=== PATIENT | male | born 1950 | race Caucasian/White ===

== ENCOUNTER 2018-07-29 14:09 | Inpatient (IN) ==
[2018-07-29] MEDS ORDERED: ACETAMINOPHEN 325 MG TABLET PO PRN (15:16)
[2018-07-29] MEDS ORDERED: ONDANSETRON 4 MG/2 ML VIAL IV PRN (15:24)
[2018-07-29 16:35] LABS: Basophils % 0.1 % (0.0-0.8); Eosinophils % 0.2 % (0.00-10.9); Hematocrit 48.8 VOL% (42.0-52.0); Hemoglobin 15.4 GM/DL (14.0-18.0); Lymphocytes # 0.4 10*3/uL (1.4-4.0); Lymphocytes % 4.2 % (21.2-54.2); Mean Corpuscular HGB Conc 31.6 GM/DL (32-36); Mean Corpuscular Hemoglobin 29 PG (27-34); Mean Corpuscular Volume 90.5 FL (87-102); Mean Platelet Volume 10.7 FL (9.6-12.0); Monocytes # 0.7 10*3/uL (0.11-0.8); Monocytes % 6.8 % (1.7-12.7); Neutrophils # 8.8 10*3/uL (1.4-7.4); Neutrophils % 86.7 % (38.7-73.9); Platelet Count 103 T/CUMM (130-400); Red Blood Count 5.39 MC/CUMM (3.8-5.5); Red Cell Distribution Width 13.8 % (9.3-17.3); White Blood Count 10.1 T/CUMM (4-12)
[2018-07-29] MEDS ORDERED: GLUCAGON 1 MG VIAL IM PRN (16:39)
[2018-07-29] MEDS ORDERED: DEXTROSE 50% 25 GM/50 ML SYRINGE IV PRN (16:39)
[2018-07-29] MEDS: LEVOFLOXACIN INJ 750 MG in PREMIX 1 EACH IV SCH (16:41)
[2018-07-29 16:55] LABS: Albumin 2.6 G/DL (3.4-5.0); Calcium 8.7 MG/DL (8.5-10.1); Osmolality,Calculated 288.7 MOS/KG (273-304); Platelet Estimate Normal; Potassium 5.3 MMOL/L (3.5-5.1); Total Protein 7.1 G/DL (6.4-8.3)
[2018-07-29 16:56] LABS: Hypochromasia Slight
[2018-07-29 16:57] LABS: Band Neutrophils 1 % (0-10); Lymphocytes 5 % (20-55); Segmented Neutrophils 89 % (50-85); Total Cells Counted 100
[2018-07-29 17:46] LABS: Apearance,Urine Slightly Hazy (Clear); Bilirubin,Urine Negative (Negative); Blood, Urine Moderate mg/dL (Negative); Glucose,Urine (UA) Negative (Negative); Ketones,Urine Negative (Negative); Mucus,Urine Occasional /LPF (Occasional); Nitrite,Urine Negative (Negative); Protein,Urine 100 MG/DL; RBC,Urine 13 /HPF (0-4); Urine Color Yellow (Yellow); Urine Specific Gravity 1.016 (1.001-1.035); Urine Urobilinogen < 2.0 EU/DL (0.2-1.0); WBC,Urine 1 /HPF (0-6)
[2018-07-29] MEDS: INSULIN REGULAR 100 UNIT/ML SUBCUT SCH (21:03)
[2018-07-30 04:42] LABS: Eosinophils % 0.4 % (0.00-10.9); Hematocrit 43.1 VOL% (42.0-52.0); Hemoglobin 13.9 GM/DL (14.0-18.0); Immature Granulocytes % 1.4 %; Lymphocytes # 0.6 10*3/uL (1.4-4.0); Lymphocytes % 8.5 % (21.2-54.2); Mean Corpuscular HGB Conc 32.3 GM/DL (32-36); Mean Corpuscular Hemoglobin 29 PG (27-34); Mean Corpuscular Volume 89.6 FL (87-102); Mean Platelet Volume 10.8 FL (9.6-12.0); Monocytes # 0.7 10*3/uL (0.11-0.8); Monocytes % 9.8 % (1.7-12.7); Neutrophils # 5.6 10*3/uL (1.4-7.4); Neutrophils % 79.9 % (38.7-73.9); Red Blood Count 4.81 MC/CUMM (3.8-5.5); Red Cell Distribution Width 13.4 % (9.3-17.3)
[2018-07-30 04:48] LABS: Platelet Count 86 T/CUMM (130-400)
[2018-07-30 05:13] LABS: Calcium 8.2 MG/DL (8.5-10.1); Osmolality,Calculated 283.7 MOS/KG (273-304); Potassium 4.9 MMOL/L (3.5-5.1)
[2018-07-30] MEDS ORDERED: COLCHICINE 0.6 MG CAPSULE PO PRN (07:17)
[2018-07-30] MEDS ORDERED: CLOBETASOL 0.05% CREAM 15 GM TUBE TOP PRN (07:17)
[2018-07-30] MEDS ORDERED: PANTOPRAZOLE 40 MG TABLET PO SCH (09:00)
[2018-07-30] MEDS ORDERED: APREMILAST 30 MG PO SCH (09:00)
[2018-07-30] MEDS: METOPROLOL TARTRATE 50 MG TABLET PO SCH ×2 (09:54→22:33)
[2018-07-30] MEDS: ASPIRIN EC 81 MG TABLET PO SCH (09:54)
[2018-07-30] MEDS: INSULIN REGULAR 100 UNIT/ML SUBCUT SCH ×4 (09:54→22:34)
[2018-07-30] MEDS: TACROLIMUS 0.5 MG CAPSULE PO SCH (09:54)
[2018-07-30] MEDS: MULTIVITAMIN (CENTRUM) TABLET PO SCH (09:54)
[2018-07-30] MEDS: PANTOPRAZOLE 40 MG TABLET PO SCH (09:54)
[2018-07-30] MEDS: MYCOPHENOLATE MOFETIL 250 MG CAPSULE PO SCH ×2 (09:54→22:33)
[2018-07-30] MEDS: glipiZIDE 5 MG TABLET PO SCH (09:54)
[2018-07-30] MEDS: ALBUTEROL/IPRATROPIUM 3 ML NEB RESP TX PRN ×2 (10:37→16:24)
[2018-07-30] MEDS: LEVOFLOXACIN INJ 750 MG in PREMIX 1 EACH IV SCH (15:11)
[2018-07-30] MEDS: CALCIUM (CARBONATE)/VITAMIN D 600 MG-400 UNIT TABLET PO SCH (22:33)
[2018-07-30] MEDS: ALLOPURINOL 300 MG TABLET PO SCH (22:34)
[2018-07-31 05:22] LABS: Eosinophils % 0.4 % (0.00-10.9); Hematocrit 39.5 VOL% (42.0-52.0); Hemoglobin 12.5 GM/DL (14.0-18.0); Immature Granulocytes % 1.7 %; Immature Granulocytes Absolute 0.08 #; Lymphocytes # 0.4 10*3/uL (1.4-4.0); Lymphocytes % 8.1 % (21.2-54.2); Mean Corpuscular HGB Conc 31.6 GM/DL (32-36); Mean Corpuscular Hemoglobin 29 PG (27-34); Mean Corpuscular Volume 90.8 FL (87-102); Monocytes # 0.4 10*3/uL (0.11-0.8); Monocytes % 8.3 % (1.7-12.7); Neutrophils # 3.8 10*3/uL (1.4-7.4); Neutrophils % 81.5 % (38.7-73.9); Red Blood Count 4.35 MC/CUMM (3.8-5.5); Red Cell Distribution Width 13.2 % (9.3-17.3); White Blood Count 4.7 T/CUMM (4-12)
[2018-07-31 05:30] LABS: Platelet Count 80 T/CUMM (130-400)
[2018-07-31 05:38] LABS: Calcium 7.8 MG/DL (8.5-10.1); Osmolality,Calculated 285.5 MOS/KG (273-304); Potassium 4.9 MMOL/L (3.5-5.1)
[2018-07-31 06:19] LABS: Platelet Estimate Decreased
[2018-07-31] MEDS ORDERED: PHENOL 1.4% THROAT SPRAY 177 ML BOTTLE PO PRN (09:24)
[2018-07-31] MEDS: INSULIN REGULAR 100 UNIT/ML SUBCUT SCH ×4 (09:24→21:37)
[2018-07-31] MEDS: METOPROLOL TARTRATE 50 MG TABLET PO SCH ×2 (09:25→21:37)
[2018-07-31] MEDS: PANTOPRAZOLE 40 MG TABLET PO SCH (09:25)
[2018-07-31] MEDS: ASPIRIN EC 81 MG TABLET PO SCH (09:25)
[2018-07-31] MEDS: MULTIVITAMIN (CENTRUM) TABLET PO SCH (09:25)
[2018-07-31] MEDS: MYCOPHENOLATE MOFETIL 250 MG CAPSULE PO SCH ×2 (09:25→21:37)
[2018-07-31] MEDS: glipiZIDE 5 MG TABLET PO SCH (09:25)
[2018-07-31] MEDS: TACROLIMUS 0.5 MG CAPSULE PO SCH (09:26)
[2018-07-31] MEDS: LEVOFLOXACIN INJ 750 MG in PREMIX 1 EACH IV SCH (16:17)
[2018-07-31] MEDS: ALBUTEROL/IPRATROPIUM 3 ML NEB RESP TX PRN (19:25)
[2018-07-31] MEDS: ALLOPURINOL 300 MG TABLET PO SCH (21:37)
[2018-07-31] MEDS: CALCIUM (CARBONATE)/VITAMIN D 600 MG-400 UNIT TABLET PO SCH (21:38)
[2018-08-01 05:18] LABS: Eosinophils % 0.8 % (0.00-10.9); Hematocrit 38.1 VOL% (42.0-52.0); Hemoglobin 12.3 GM/DL (14.0-18.0); Immature Granulocytes % 1.6 %; Immature Granulocytes Absolute 0.06 #; Lymphocytes # 0.4 10*3/uL (1.4-4.0); Lymphocytes % 10.7 % (21.2-54.2); Mean Corpuscular HGB Conc 32.3 GM/DL (32-36); Mean Corpuscular Hemoglobin 29 PG (27-34); Mean Corpuscular Volume 90.5 FL (87-102); Monocytes # 0.4 10*3/uL (0.11-0.8); Monocytes % 9.4 % (1.7-12.7); Neutrophils % 77.5 % (38.7-73.9); Red Blood Count 4.21 MC/CUMM (3.8-5.5); Red Cell Distribution Width 13.2 % (9.3-17.3); White Blood Count 3.8 T/CUMM (4-12)
[2018-08-01 05:19] LABS: Platelet Count 91 T/CUMM (130-400)
[2018-08-01 05:48] LABS: Calcium 7.7 MG/DL (8.5-10.1); Osmolality,Calculated 286.4 MOS/KG (273-304); Potassium 5.8 MMOL/L (3.5-5.1)
[2018-08-01] MEDS: INSULIN REGULAR 100 UNIT/ML SUBCUT SCH ×4 (08:02→21:24)
[2018-08-01] MEDS: glipiZIDE 5 MG TABLET PO SCH (08:02)
[2018-08-01] MEDS: ASPIRIN EC 81 MG TABLET PO SCH (09:05)
[2018-08-01] MEDS: MULTIVITAMIN (CENTRUM) TABLET PO SCH (09:05)
[2018-08-01] MEDS: TACROLIMUS 0.5 MG CAPSULE PO SCH (09:05)
[2018-08-01] MEDS: METOPROLOL TARTRATE 50 MG TABLET PO SCH ×2 (09:05→21:25)
[2018-08-01] MEDS: MYCOPHENOLATE MOFETIL 250 MG CAPSULE PO SCH ×2 (09:05→21:25)
[2018-08-01] MEDS: PANTOPRAZOLE 40 MG TABLET PO SCH (10:16)
[2018-08-01] MEDS: LEVOFLOXACIN INJ 750 MG in PREMIX 1 EACH IV SCH (16:34)
[2018-08-01] MEDS: ALLOPURINOL 300 MG TABLET PO SCH (21:25)
[2018-08-01] MEDS: CALCIUM (CARBONATE)/VITAMIN D 600 MG-400 UNIT TABLET PO SCH (21:25)
[2018-08-02] MEDS: INSULIN REGULAR 100 UNIT/ML SUBCUT SCH ×4 (08:29→21:05)
[2018-08-02] MEDS: ASPIRIN EC 81 MG TABLET PO SCH (08:30)
[2018-08-02] MEDS: TACROLIMUS 0.5 MG CAPSULE PO SCH (08:30)
[2018-08-02] MEDS: MYCOPHENOLATE MOFETIL 250 MG CAPSULE PO SCH ×2 (08:30→21:05)
[2018-08-02] MEDS: METOPROLOL TARTRATE 50 MG TABLET PO SCH ×2 (08:30→21:05)
[2018-08-02] MEDS: glipiZIDE 5 MG TABLET PO SCH (08:31)
[2018-08-02] MEDS: MULTIVITAMIN (CENTRUM) TABLET PO SCH (08:31)
[2018-08-02] MEDS: PANTOPRAZOLE 40 MG TABLET PO SCH (08:31)
[2018-08-02] MEDS ORDERED: SODIUM POLYSTYRENE SULFATE 15 GM/60 ML BOTTLE PO STA (14:17)
[2018-08-02] MEDS: LEVOFLOXACIN INJ 750 MG in PREMIX 1 EACH IV SCH (14:43)
[2018-08-02] MEDS: ALLOPURINOL 300 MG TABLET PO SCH (21:05)
[2018-08-02] MEDS: CALCIUM (CARBONATE)/VITAMIN D 600 MG-400 UNIT TABLET PO SCH (21:05)
[2018-08-03 04:21] LABS: Basophils % 0.3 % (0.0-0.8); Eosinophils % 0.9 % (0.00-10.9); Hematocrit 37.6 VOL% (42.0-52.0); Immature Granulocytes % 1.5 %; Immature Granulocytes Absolute 0.05 #; Lymphocytes # 0.6 10*3/uL (1.4-4.0); Lymphocytes % 16.8 % (21.2-54.2); Mean Corpuscular HGB Conc 31.9 GM/DL (32-36); Mean Corpuscular Hemoglobin 29 PG (27-34); Mean Corpuscular Volume 90.4 FL (87-102); Mean Platelet Volume 9.3 FL (9.6-12.0); Monocytes # 0.3 10*3/uL (0.11-0.8); Monocytes % 9.6 % (1.7-12.7); Neutrophils # 2.4 10*3/uL (1.4-7.4); Neutrophils % 70.9 % (38.7-73.9); Red Blood Count 4.16 MC/CUMM (3.8-5.5); Red Cell Distribution Width 13.2 % (9.3-17.3); White Blood Count 3.3 T/CUMM (4-12)
[2018-08-03 04:22] LABS: Platelet Count 93 T/CUMM (130-400)
[2018-08-03 04:45] LABS: Platelet Estimate Decreased; Polychromasia Few
[2018-08-03 05:01] LABS: Calcium 7.4 MG/DL (8.5-10.1); Osmolality,Calculated 282.2 MOS/KG (273-304); Potassium 4.8 MMOL/L (3.5-5.1)
[2018-08-03] MEDS: INSULIN REGULAR 100 UNIT/ML SUBCUT SCH ×2 (08:15→12:28)
[2018-08-03] MEDS: glipiZIDE 5 MG TABLET PO SCH (08:15)
[2018-08-03] MEDS: MYCOPHENOLATE MOFETIL 250 MG CAPSULE PO SCH (10:24)
[2018-08-03] MEDS: PANTOPRAZOLE 40 MG TABLET PO SCH (10:25)
[2018-08-03] MEDS: ASPIRIN EC 81 MG TABLET PO SCH (10:25)
[2018-08-03] MEDS: MULTIVITAMIN (CENTRUM) TABLET PO SCH (10:25)
[2018-08-03] MEDS: TACROLIMUS 0.5 MG CAPSULE PO SCH (10:25)
[2018-08-03] MEDS: METOPROLOL TARTRATE 50 MG TABLET PO SCH (10:25)
[2018-08-03 11:56] VITALS: BP 122/67
[2018-08-03] MEDS ORDERED: LEVOFLOXACIN 750 MG TABLET PO SCH (15:00)
== END 2018-08-03 15:47 | disposition home or self-care (01) | DRG 194 ==
LOC: SUATTDRO 14:32 → N.3E 14:32
PROVIDERS: ADMIT Internal Medicine; ATTEND Internal Medicine

== ENCOUNTER 2021-04-24 18:52 | Inpatient (IN) ==
[2021-04-24] MEDS ORDERED: FUROSEMIDE 40 MG/4 ML VIAL IV STA (19:11)
[2021-04-24] MEDS ORDERED: NITROGLYCERIN SL 0.4 MG TABLET SL STA (19:11)
[2021-04-24 19:26] LABS: Basophils % 0.3 % (0.0-0.8); Eosinophils # 0.1 10*3/uL (0.0-0.87); Eosinophils % 1.5 % (0.00-10.9); Hematocrit 38.6 VOL% (42.0-52.0); Hemoglobin 11.1 GM/DL (14.0-18.0); Immature Granulocytes % 0.5 %; Immature Granulocytes Absolute 0.02 #; Lymphocytes % 25.8 % (21.2-54.2); Mean Corpuscular HGB Conc 28.8 GM/DL (32-36); Mean Corpuscular Volume 86.7 FL (87-102); Mean Platelet Volume 8.9 FL (9.6-12.0); Monocytes % 6.6 % (1.7-12.7); Neutrophils % 65.3 % (38.7-73.9); Platelet Count 87 T/CUMM (130-400); Red Blood Count 4.45 MC/CUMM (3.8-5.5); White Blood Count 3.9 T/CUMM (4-12)
[2021-04-24] MEDS: NITROGLYCERIN DRIP 50 MG/250 ML BOTTLE IV SCH (19:58)
[2021-04-24 20:08] LABS: Albumin 3.6 G/DL (3.4-5.0); Bilirubin,Direct 0.28 MG/DL (0.0-0.20); Bilirubin,Indirect 0.4 MG/DL (0.0-1.0); Bilirubin,Total 0.7 MG/DL (0.20-1.00); Calcium 7.8 MG/DL (8.5-10.1); Osmolality,Calculated 295.1 MOS/KG (273-304); Potassium 4.3 MMOL/L (3.5-5.1); Total Protein 6.6 G/DL (6.4-8.2)
[2021-04-24] MEDS ORDERED: ACETAMINOPHEN 325 MG TABLET PO PRN ×2 (20:37→23:16)
[2021-04-24] MEDS ORDERED: ONDANSETRON 4 MG/2 ML VIAL IV PRN ×2 (20:37→23:16)
[2021-04-24] MEDS ORDERED: SODIUM CHLORIDE 0.9% 1,000 ML IV SCH (21:00)
[2021-04-24] MEDS ORDERED: DOCUSATE SODIUM 100 MG CAPSULE PO SCH (21:00)
[2021-04-24] MEDS ORDERED: hydrALAZINE 20 MG/1 ML VIAL IV STA (21:55)
[2021-04-24 22:05] LABS: ABG Base Excess -3.6 MMOL/L (-2.5-2.5); ABG HCO3 21.4 MMOL/L (20-26); ABG Oxygen Saturation 99.6 % (95-100); ABG PCO2 34.1 MM HG (35-48); ABG PH 7.391 (7.35-7.45); ABG TCO2 18.7 MMOL/L (23-27)
[2021-04-24] MEDS ORDERED: DEXTROSE 50% 25 GM/50 ML VIAL IV PRN ×2 (23:14→23:16)
[2021-04-24] MEDS ORDERED: hydrALAZINE 20 MG/1 ML VIAL IV PRN (23:16)
[2021-04-24] MEDS ORDERED: HEPARIN 5,000 UNIT/1 ML VIAL SUBCUT SCH (23:30)
[2021-04-25] MEDS ORDERED: NITROGLYCERIN SL 0.4 MG TABLET SL PRN (00:23)
[2021-04-25] MEDS ORDERED: FUROSEMIDE 40 MG/4 ML VIAL IV ONE (00:25)
[2021-04-25] MEDS: ALBUTEROL/IPRATROPIUM 3 ML NEB RESP TX SCH ×3 (03:32→13:05)
[2021-04-25 06:24] LABS: Basophils % 0.3 % (0.0-0.8); Eosinophils # 0.1 10*3/uL (0.0-0.87); Eosinophils % 1.4 % (0.00-10.9); Hematocrit 33.3 VOL% (42.0-52.0); Hemoglobin 9.9 GM/DL (14.0-18.0); Immature Granulocytes % 0.8 %; Immature Granulocytes Absolute 0.03 #; Lymphocytes # 0.4 10*3/uL (1.4-4.0); Lymphocytes % 11.1 % (21.2-54.2); Mean Corpuscular HGB Conc 29.7 GM/DL (32-36); Mean Corpuscular Volume 84.5 FL (87-102); Mean Platelet Volume 11.1 FL (9.6-12.0); Monocytes % 8.9 % (1.7-12.7); Neutrophils % 77.5 % (38.7-73.9); Platelet Count 63 T/CUMM (130-400); Red Blood Count 3.94 MC/CUMM (3.8-5.5); Red Cell Distribution Width 14.8 % (9.3-17.3); White Blood Count 3.6 T/CUMM (4-12)
[2021-04-25 06:45] LABS: Hypochromasia 1+; Microcytosis 1+; Ovalocytes Slight; Platelet Estimate Decreased
[2021-04-25 06:53] LABS: Albumin 3.1 G/DL (3.4-5.0); Calcium 7.6 MG/DL (8.5-10.1); Osmolality,Calculated 292.8 MOS/KG (273-304); Potassium 4.2 MMOL/L (3.5-5.1); Total Protein 5.4 G/DL (6.4-8.2)
[2021-04-25] MEDS ORDERED: diphenhydrAMINE CAP 50 MG CAPSULE PO ONE (07:23)
[2021-04-25] MEDS ORDERED: DIAZEPAM 5 MG TABLET PO ONE (07:23)
[2021-04-25] MEDS ORDERED: glipiZIDE 5 MG TABLET PO SCH (07:30)
[2021-04-25] MEDS: INSULIN LISPRO 100 UNIT/ML SUBCUT SCH ×4 (08:09→20:33)
[2021-04-25] MEDS ORDERED: LIDOCAINE 1% 20 ML VIAL ONE (08:13)
[2021-04-25] MEDS: METOPROLOL TARTRATE 50 MG TABLET PO SCH ×2 (08:17→20:32)
[2021-04-25] MEDS: ASPIRIN EC 81 MG TABLET PO SCH (08:17)
[2021-04-25] MEDS ORDERED: fentaNYL 100 MCG/2 ML VIAL ONE (08:54)
[2021-04-25] MEDS ORDERED: MIDAZOLAM 2 MG/2 ML VIAL ONE (08:54)
[2021-04-25] MEDS ORDERED: ISOSORBIDE MONONITRATE 30 MG TABLET PO SCH (09:00)
[2021-04-25] MEDS ORDERED: PANTOPRAZOLE 40 MG TABLET PO SCH ×2 (09:00)
[2021-04-25] MEDS ORDERED: APREMILAST 30 MG PO SCH (09:00)
[2021-04-25] MEDS: SODIUM CHLORIDE 0.9% 1,000 ML IV SCH (10:15)
[2021-04-25] MEDS: FUROSEMIDE 40 MG/4 ML VIAL IV SCH ×2 (10:59→20:33)
[2021-04-25] MEDS ORDERED: amLODIPine 5 MG TABLET PO SCH (11:00)
[2021-04-25] MEDS: TACROLIMUS 0.5 MG CAPSULE PO SCH (11:00)
[2021-04-25] MEDS: MYCOPHENOLATE MOFETIL 250 MG CAPSULE PO SCH ×2 (11:00→20:32)
[2021-04-25] MEDS: hydrALAZINE 25 MG TABLET PO SCH ×2 (11:01→20:32)
[2021-04-25] MEDS: allopurinoL 300 MG TABLET PO SCH (20:32)
[2021-04-25] MEDS: SIMVASTATIN 20 MG TABLET PO SCH (20:32)
[2021-04-25] MEDS: CALCIUM (CARBONATE)/VITAMIN D 600 MG-400 UNIT TABLET PO SCH (20:32)
[2021-04-25] MEDS: NITROGLYCERIN DRIP 50 MG/250 ML BOTTLE IV SCH (21:19)
[2021-04-26] MEDS: ALBUTEROL/IPRATROPIUM 3 ML NEB RESP TX SCH ×4 (00:53→19:00)
[2021-04-26] MEDS: SODIUM CHLORIDE 0.9% 1,000 ML IV SCH (06:11)
[2021-04-26 07:04] LABS: Basophils % 0.3 % (0.0-0.8); Eosinophils # 0.1 10*3/uL (0.0-0.87); Eosinophils % 2.2 % (0.00-10.9); Hematocrit 32.8 VOL% (42.0-52.0); Hemoglobin 9.7 GM/DL (14.0-18.0); Immature Granulocytes % 0.3 %; Immature Granulocytes Absolute 0.01 #; Lymphocytes # 0.5 10*3/uL (1.4-4.0); Lymphocytes % 15.2 % (21.2-54.2); Mean Corpuscular HGB Conc 29.6 GM/DL (32-36); Mean Corpuscular Volume 84.1 FL (87-102); Mean Platelet Volume 11.7 FL (9.6-12.0); Monocytes % 9.5 % (1.7-12.7); Neutrophils % 72.5 % (38.7-73.9); Red Cell Distribution Width 15.1 % (9.3-17.3); White Blood Count 3.2 T/CUMM (4-12)
[2021-04-26 07:06] LABS: Platelet Count 78 T/CUMM (130-400)
[2021-04-26 07:17] LABS: Calcium 8.1 MG/DL (8.5-10.1); Potassium 4.3 MMOL/L (3.5-5.1)
[2021-04-26 07:34] LABS: Anisocytosis 2+; Platelet Estimate Decreased
[2021-04-26 07:35] LABS: Ovalocytes 1+
[2021-04-26] MEDS: INSULIN LISPRO 100 UNIT/ML SUBCUT SCH ×4 (08:05→20:09)
[2021-04-26] MEDS: hydrALAZINE 25 MG TABLET PO SCH ×2 (09:56→20:08)
[2021-04-26] MEDS: MYCOPHENOLATE MOFETIL 250 MG CAPSULE PO SCH ×2 (09:56→20:08)
[2021-04-26] MEDS: METOPROLOL TARTRATE 50 MG TABLET PO SCH ×2 (09:56→20:08)
[2021-04-26] MEDS: ISOSORBIDE MONONITRATE 60 MG TABLET PO SCH (09:56)
[2021-04-26] MEDS: TACROLIMUS 0.5 MG CAPSULE PO SCH (09:56)
[2021-04-26] MEDS: FUROSEMIDE 40 MG/4 ML VIAL IV SCH ×2 (09:57→20:09)
[2021-04-26] MEDS: amLODIPine 5 MG TABLET PO SCH (09:57)
[2021-04-26] MEDS: ASPIRIN EC 81 MG TABLET PO SCH (09:57)
[2021-04-26] MEDS: allopurinoL 300 MG TABLET PO SCH (20:08)
[2021-04-26] MEDS: CALCIUM (CARBONATE)/VITAMIN D 600 MG-400 UNIT TABLET PO SCH (20:08)
[2021-04-26] MEDS: SIMVASTATIN 20 MG TABLET PO SCH (20:08)
[2021-04-26] MEDS: CHLORHEXIDINE 0.12% ORAL RINSE 60 ML BOTTLE SWISH/SPIT SCH (21:39)
[2021-04-27] MEDS: ALBUTEROL/IPRATROPIUM 3 ML NEB RESP TX SCH ×4 (00:12→19:44)
[2021-04-27 05:11] LABS: Basophils % 0.4 % (0.0-0.8); Eosinophils # 0.1 10*3/uL (0.0-0.87); Eosinophils % 3.3 % (0.00-10.9); Hematocrit 31.1 VOL% (42.0-52.0); Hemoglobin 9.2 GM/DL (14.0-18.0); Immature Granulocytes % 0.4 %; Immature Granulocytes Absolute 0.01 #; Lymphocytes # 0.5 10*3/uL (1.4-4.0); Lymphocytes % 19.9 % (21.2-54.2); Mean Corpuscular HGB Conc 29.6 GM/DL (32-36); Mean Corpuscular Volume 84.1 FL (87-102); Mean Platelet Volume 9.2 FL (9.6-12.0); Monocytes % 10.2 % (1.7-12.7); Neutrophils % 65.8 % (38.7-73.9); Platelet Count 69 T/CUMM (130-400); Red Cell Distribution Width 14.8 % (9.3-17.3); White Blood Count 2.5 T/CUMM (4-12)
[2021-04-27 05:54] LABS: % Iron Saturation 8.1 % (18-50); Calcium 7.9 MG/DL (8.5-10.1); Ferritin 25.3 ng/mL (26-388); Osmolality,Calculated 293.1 MOS/KG (273-304)
[2021-04-27] MEDS: INSULIN LISPRO 100 UNIT/ML SUBCUT SCH ×4 (08:42→20:18)
[2021-04-27] MEDS: ASPIRIN EC 81 MG TABLET PO SCH (10:19)
[2021-04-27] MEDS: TACROLIMUS 0.5 MG CAPSULE PO SCH (10:19)
[2021-04-27] MEDS: ISOSORBIDE MONONITRATE 60 MG TABLET PO SCH (10:19)
[2021-04-27] MEDS: amLODIPine 5 MG TABLET PO SCH (10:20)
[2021-04-27] MEDS: MYCOPHENOLATE MOFETIL 250 MG CAPSULE PO SCH ×2 (10:20→20:17)
[2021-04-27] MEDS: hydrALAZINE 25 MG TABLET PO SCH ×2 (10:20→20:17)
[2021-04-27] MEDS: METOPROLOL TARTRATE 50 MG TABLET PO SCH ×2 (10:20→20:17)
[2021-04-27] MEDS: CHLORHEXIDINE 0.12% ORAL RINSE 60 ML BOTTLE SWISH/SPIT SCH ×2 (10:21→20:18)
[2021-04-27] MEDS ORDERED: MAGNESIUM SULF RIDER 2 GM/50 ML PREMIX IV ONE (10:26)
[2021-04-27] MEDS: FUROSEMIDE 40 MG/4 ML VIAL IV SCH ×2 (11:23→20:17)
[2021-04-27] MEDS ORDERED: DOCUSATE SODIUM 100 MG CAPSULE PO PRN (11:42)
[2021-04-27] MEDS: FERROUS GLUCONATE 324 MG TABLET PO SCH (20:17)
[2021-04-27] MEDS: SIMVASTATIN 20 MG TABLET PO SCH (20:17)
[2021-04-27] MEDS: CALCIUM (CARBONATE)/VITAMIN D 600 MG-400 UNIT TABLET PO SCH (20:17)
[2021-04-27] MEDS: allopurinoL 300 MG TABLET PO SCH (20:17)
[2021-04-28] MEDS: ALBUTEROL/IPRATROPIUM 3 ML NEB RESP TX SCH ×4 (00:57→20:38)
[2021-04-28 04:34] LABS: ABG Base Excess 3.2 MMOL/L (-2.5-2.5); ABG HCO3 27.2 MMOL/L (20-26); ABG Oxygen Saturation 91.8 % (95-100); ABG PCO2 43.4 MM HG (35-48); ABG PH 7.419 (7.35-7.45); ABG PO2 64.1 MM HG (80-95); ABG TCO2 25.7 MMOL/L (23-27)
[2021-04-28 04:35] LABS: Allen Test Positive; Pt O2 Delivery Device Room Air
[2021-04-28 05:08] LABS: Basophils % 0.3 % (0.0-0.8); Eosinophils # 0.1 10*3/uL (0.0-0.87); Eosinophils % 3.1 % (0.00-10.9); Hematocrit 31.7 VOL% (42.0-52.0); Hemoglobin 9.5 GM/DL (14.0-18.0); Immature Granulocytes % 0.7 %; Immature Granulocytes Absolute 0.02 #; Lymphocytes # 0.6 10*3/uL (1.4-4.0); Lymphocytes % 20.2 % (21.2-54.2); Mean Platelet Volume 9.8 FL (9.6-12.0); Monocytes % 7.2 % (1.7-12.7); Neutrophils % 68.5 % (38.7-73.9); Platelet Count 73 T/CUMM (130-400); Red Blood Count 3.82 MC/CUMM (3.8-5.5); Red Cell Distribution Width 14.8 % (9.3-17.3); White Blood Count 2.9 T/CUMM (4-12)
[2021-04-28 05:21] LABS: Calcium 8.7 MG/DL (8.5-10.1); Potassium 3.7 MMOL/L (3.5-5.1)
[2021-04-28 05:27] LABS: Alanine Aminotransferase 15 U/L (16-61); Alkaline Phosphatase 74 U/L (45-117); Aspartate Amino Transferase 10 U/L (0-37); Blood Urea Nitrogen 45 MG/DL (7-18); Calcium 8.9 MG/DL (8.5-10.1); Carbon Dioxide 29 MMOL/L (21-32); Estimated Glom Filtration Rate 38 ML/MIN; Glucose 131 MG/DL (74-106); Osmolality,Calculated 294.3 MOS/KG (273-304); Potassium 3.7 MMOL/L (3.5-5.1); Sodium 141 MMOL/L (136-145); Total Protein 5.5 G/DL (6.4-8.2)
[2021-04-28 05:46] LABS: Hypochromasia 1+; Microcytosis 1+; Ovalocytes Slight
[2021-04-28 05:47] LABS: Platelet Estimate Decreased
[2021-04-28] MEDS ORDERED: MAGNESIUM SULF RIDER 4 GM/100 ML PREMIX IV ONE (07:32)
[2021-04-28] MEDS: INSULIN LISPRO 100 UNIT/ML SUBCUT SCH ×4 (08:30→21:11)
[2021-04-28] MEDS: ASCORBIC ACID 500 MG TABLET PO SCH ×2 (09:27→21:10)
[2021-04-28] MEDS: TACROLIMUS 0.5 MG CAPSULE PO SCH (09:39)
[2021-04-28] MEDS: ASPIRIN EC 81 MG TABLET PO SCH (09:40)
[2021-04-28] MEDS: hydrALAZINE 25 MG TABLET PO SCH ×2 (09:40→21:10)
[2021-04-28] MEDS: amLODIPine 5 MG TABLET PO SCH (09:40)
[2021-04-28] MEDS: METOPROLOL TARTRATE 50 MG TABLET PO SCH ×2 (09:40→21:10)
[2021-04-28] MEDS: ISOSORBIDE MONONITRATE 60 MG TABLET PO SCH (09:40)
[2021-04-28] MEDS: MYCOPHENOLATE MOFETIL 250 MG CAPSULE PO SCH ×2 (09:40→21:10)
[2021-04-28] MEDS: FERROUS GLUCONATE 324 MG TABLET PO SCH ×2 (09:41→21:10)
[2021-04-28] MEDS: CHLORHEXIDINE 0.12% ORAL RINSE 60 ML BOTTLE SWISH/SPIT SCH ×2 (09:41→21:12)
[2021-04-28] MEDS: FUROSEMIDE 40 MG/4 ML VIAL IV SCH ×2 (10:32→21:31)
[2021-04-28] MEDS: CHLORHEXIDINE 4% SOLN 118 ML BOTTLE TOP SCH ×2 (13:01→21:10)
[2021-04-28] MEDS ORDERED: SODIUM CHLORIDE 0.9% 1,000 ML IV SCH (21:00)
[2021-04-28] MEDS: allopurinoL 300 MG TABLET PO SCH (21:10)
[2021-04-28] MEDS: SIMVASTATIN 20 MG TABLET PO SCH (21:10)
[2021-04-28] MEDS: CALCIUM (CARBONATE)/VITAMIN D 600 MG-400 UNIT TABLET PO SCH (21:10)
[2021-04-29] MEDS: ALBUTEROL/IPRATROPIUM 3 ML NEB RESP TX SCH ×2 (00:01→09:19)
[2021-04-29] MEDS ORDERED: PAPAVERINE 60 MG/2 ML VIAL ONE (04:24)
[2021-04-29] MEDS ORDERED: VANCOMYCIN 1,000 MG VIAL ONE (04:25)
[2021-04-29] MEDS ORDERED: VANCOMYCIN 500 MG VIAL ONE (04:25)
[2021-04-29] MEDS ORDERED: CEFUROXIME INJ 1,500 MG in SODIUM CHLORIDE 0.9% 100 ML IV ONE (05:00)
[2021-04-29] MEDS: CHLORHEXIDINE 4% SOLN 118 ML BOTTLE TOP SCH (05:07)
[2021-04-29] MEDS ORDERED: SEVOFLURANE 1 UNIT/15 MINUTE INH ONE (05:45)
[2021-04-29] MEDS ORDERED: AMINOCAPROIC ACID 5,000 MG/20 ML VIAL ONE (05:45)
[2021-04-29] MEDS ORDERED: ETOMIDATE 40 MG/20 ML VIAL IV ONE (05:45)
[2021-04-29] MEDS ORDERED: CALCIUM CHLORIDE 1,000 MG/10 ML VIAL IV ONE ×2 (05:45→10:45)
[2021-04-29] MEDS ORDERED: SODIUM CHLORIDE 0.9% 250 ML IV ONE (05:45)
[2021-04-29] MEDS ORDERED: SODIUM CHLORIDE 0.9% 100 ML IV ONE (05:45)
[2021-04-29] MEDS ORDERED: SODIUM CHLORIDE 0.9% 1,000 ML IV ONE (05:45)
[2021-04-29] MEDS ORDERED: LACTATED RINGERS 1,000 ML IV ONE (05:45)
[2021-04-29] MEDS ORDERED: MIDAZOLAM 10 MG/2 ML VIAL ONE ×4 (05:45→05:46)
[2021-04-29] MEDS ORDERED: VECURONIUM 10 MG VIAL IV ONE (05:45)
[2021-04-29] MEDS ORDERED: SUFentanil 250 MCG/5 ML AMP ONE ×3 (05:46)
[2021-04-29] MEDS: METOPROLOL TARTRATE 50 MG TABLET PO SCH ×2 (05:50→11:26)
[2021-04-29 05:55] LABS: Basophils % 0.2 % (0.0-0.8); Eosinophils # 0.2 10*3/uL (0.0-0.87); Eosinophils % 3.4 % (0.00-10.9); Hematocrit 38.2 VOL% (42.0-52.0); Hemoglobin 11.6 GM/DL (14.0-18.0); Immature Granulocytes % 0.2 %; Immature Granulocytes Absolute 0.01 #; Lymphocytes # 0.9 10*3/uL (1.4-4.0); Lymphocytes % 19.7 % (21.2-54.2); Mean Corpuscular HGB Conc 30.4 GM/DL (32-36); Mean Corpuscular Volume 82.3 FL (87-102); Mean Platelet Volume 11.9 FL (9.6-12.0); Monocytes % 8.1 % (1.7-12.7); Neutrophils % 68.4 % (38.7-73.9); Platelet Count 98 T/CUMM (130-400); Red Blood Count 4.64 MC/CUMM (3.8-5.5); White Blood Count 4.4 T/CUMM (4-12)
[2021-04-29] MEDS ORDERED: PHENYLEPHRINE 10 MG/1 ML VIAL IV ONE (06:03)
[2021-04-29 06:13] LABS: Hypochromasia 1+
[2021-04-29 06:14] LABS: Microcytosis 1+; Ovalocytes 1+; Tear Drop Cells Slight
[2021-04-29 06:15] LABS: Calcium 10.1 MG/DL (8.5-10.1); Osmolality,Calculated 294.4 MOS/KG (273-304); Platelet Estimate Decreased; Potassium 3.8 MMOL/L (3.5-5.1)
[2021-04-29] MEDS ORDERED: DIAZEPAM 5 MG TABLET PO ONE (06:45)
[2021-04-29] MEDS ORDERED: FAMOTIDINE 20 MG TABLET PO ONE (06:45)
[2021-04-29] MEDS ORDERED: ALBUMIN 5% 25.0 GM/500 ML VIAL IV ONE (07:21)
[2021-04-29] MEDS ORDERED: PHENYLEPHRINE DRIP 40 MG/250 ML PREMIX IV ONE (07:21)
[2021-04-29] MEDS ORDERED: POTASSIUM CHLORIDE RIDER 20 MEQ/100 ML PREMIX IV ONE (07:21)
[2021-04-29 07:31] LABS: ABG Base Excess 2.6 MMOL/L (-2.5-2.5); ABG HCO3 26.8 MMOL/L (20-26); ABG PCO2 41.7 MM HG (35-48); ABG PH 7.423 (7.35-7.45); ABG TCO2 24.7 MMOL/L (23-27); Glucose Heart Surgery 131 MG/DL (74-106); Hematocrit Heart Surgery 31.2 PERCENT (42-52); Hemoglobin Heart Surgery 10.1 G/DL (14.0-18.0); Ionized Calcium Arterial 1.21 MMOL/L (1.21-1.46); PCO2 Patient Temp Arterial 41.7 MMHG; PH Patient Temp Arterial 7.423; Patient Temperature 37 CELCIUS; Potassium Heart/CVR 3.6 MMOL/L (3.5-5.1); Sodium Heart/CVR 141 MMOL/L (135-145)
[2021-04-29 07:50] LABS: Bilirubin,Urine Negative (Negative); Blood, Urine Negative (Negative); Glucose,Urine (UA) Negative (Negative); Ketones,Urine Negative (Negative); Nitrite,Urine Negative (Negative); Protein,Urine Negative; RBC,Urine 1 /HPF (0-4); Squamous Epithelial Cell,Urine Occasional /HPF (0-10); Urine Appearance CLEAR (Clear); Urine Color Straw (Yellow); Urine Specific Gravity 1.009 (1.001-1.035); Urine Urobilinogen < 2.0 EU/DL (0.2-1.0)
[2021-04-29 08:28] LABS: Hematocrit Heart Surgery 21.5 PERCENT (42-52); Hemoglobin Heart Surgery 6.9 G/DL (14.0-18.0); PCO2 Patient Temp Venous 35.5 MM HG; PH Patient Temp Venous 7.481; PO2 Patient Temp Venous 37.3 MM HG; Potassium Heart/CVR 4.3 MMOL/L (3.5-5.1); VBG Base Excess 3.1 MEQ/L (0-4); VBG Oxygen Saturation 77.2 %; VBG PCO2 39.1 MMHG (41-51); VBG PH 7.451; VBG PO2 42.9 MMHG (17-40); VBG Total CO2 25.8 MMOL/L
[2021-04-29 09:01] LABS: Hematocrit Heart Surgery 24.6 PERCENT (42-52); Hemoglobin Heart Surgery 7.9 G/DL (14.0-18.0); PCO2 Patient Temp Venous 30.7 MM HG; PH Patient Temp Venous 7.521; PO2 Patient Temp Venous 38.9 MM HG; Potassium Heart/CVR 4.5 MMOL/L (3.5-5.1); VBG Base Excess 2.6 MEQ/L (0-4); VBG HCO3 26.6 MEQ/L (24-28); VBG Oxygen Saturation 83.7 %; VBG PCO2 35.5 MMHG (41-51); VBG PH 7.476; VBG PO2 47.8 MMHG (17-40); VBG Total CO2 24.4 MMOL/L
[2021-04-29 09:46] LABS: Hematocrit Heart Surgery 24.8 PERCENT (42-52); PCO2 Patient Temp Venous 28.8 MM HG; PH Patient Temp Venous 7.554; PO2 Patient Temp Venous 36.9 MM HG; Potassium Heart/CVR 4.5 MMOL/L (3.5-5.1); VBG Base Excess 3.4 MEQ/L (0-4); VBG HCO3 27.3 MEQ/L (24-28); VBG Oxygen Saturation 82.1 %; VBG PCO2 33.2 MMHG (41-51); VBG PH 7.508; VBG PO2 45.3 MMHG (17-40); VBG Total CO2 24.7 MMOL/L
[2021-04-29] MEDS ORDERED: PHENYLEPHRINE DRIP 20 MG/250 ML PREMIX IV ONE (10:00)
[2021-04-29] MEDS ORDERED: NITROGLYCERIN DRIP 50 MG/250 ML BOTTLE IV ONE (10:00)
[2021-04-29] MEDS ORDERED: HEPARIN/NACL 0.9% 2 UNITS/ML 1,000 UNIT/500 ML BAG IV ONE (10:00)
[2021-04-29] MEDS ORDERED: MINERAL OIL/PETROLATUM OPH OINT 3.5 GM TUBE ONE (10:00)
[2021-04-29 10:22] LABS: Hematocrit Heart Surgery 23.7 PERCENT (42-52); Hemoglobin Heart Surgery 7.6 G/DL (14.0-18.0); PCO2 Patient Temp Venous 35.5 MM HG; PH Patient Temp Venous 7.461; PO2 Patient Temp Venous 41.6 MM HG; Potassium Heart/CVR 5.1 MMOL/L (3.5-5.1); VBG Base Excess 1.6 MEQ/L (0-4); VBG HCO3 25.6 MEQ/L (24-28); VBG Oxygen Saturation 75.7 %; VBG PCO2 35.5 MMHG (41-51); VBG PH 7.461; VBG PO2 41.6 MMHG (17-40); VBG Total CO2 23.8 MMOL/L
[2021-04-29] MEDS ORDERED: THROMBIN TOPICAL (RECOMBINANT) 5,000 UNIT VIAL TOP ONE (10:36)
[2021-04-29] MEDS ORDERED: MAGNESIUM SULFATE 5 GM/10 ML VIAL IV ONE (11:04)
[2021-04-29] MEDS ORDERED: HEPARIN 10,000 UNIT/10 ML VIAL ONE (11:05)
[2021-04-29] MEDS ORDERED: MANNITOL 12.5 GM/50 ML VIAL IV ONE (11:05)
[2021-04-29] MEDS ORDERED: FUROSEMIDE 20 MG/2 ML VIAL ONE (11:05)
[2021-04-29] MEDS ORDERED: DEXTROSE 5% KCL 20 MEQ 40 MEQ/2,000 ML BAG IV ONE (11:05)
[2021-04-29] MEDS ORDERED: LIDOCAINE 2% 5 ML VIAL ONE (11:06)
[2021-04-29] MEDS ORDERED: PROTAMINE SULFATE 250 MG/25 ML VIAL IV ONE (11:07)
[2021-04-29] MEDS ORDERED: MANNITOL 100 GM/500 ML BAG IV ONE (11:07)
[2021-04-29] MEDS ORDERED: methylPREDNISolone SOD SUC 1,000 MG/8 ML VIAL ONE (11:07)
[2021-04-29] MEDS ORDERED: SODIUM BICARBONATE 50 MEQ/50 ML VIAL IV ONE (11:07)
[2021-04-29] MEDS ORDERED: ALBUMIN 25% 25 GM/100 ML VIAL IV ONE (11:08)
[2021-04-29 11:18] LABS: ABG Base Excess 0.9 MMOL/L (-2.5-2.5); ABG HCO3 25.3 MMOL/L (20-26); ABG PCO2 32.1 MM HG (35-48); ABG PH 7.481 (7.35-7.45); ABG TCO2 22.1 MMOL/L (23-27); Glucose Heart Surgery 307 MG/DL (74-106); Hematocrit Heart Surgery 26.9 PERCENT (42-52); Hemoglobin Heart Surgery 8.7 G/DL (14.0-18.0); Ionized Calcium Arterial 1.13 MMOL/L (1.21-1.46); PCO2 Patient Temp Arterial 32.1 MMHG; PH Patient Temp Arterial 7.481; Patient Temperature 37 CELCIUS; Potassium Heart/CVR 4.2 MMOL/L (3.5-5.1); Sodium Heart/CVR 133 MMOL/L (135-145)
[2021-04-29] MEDS: INSULIN LISPRO 100 UNIT/ML SUBCUT SCH ×2 (11:25→11:26)
[2021-04-29] MEDS: hydrALAZINE 25 MG TABLET PO SCH (11:25)
[2021-04-29] MEDS: ASPIRIN EC 81 MG TABLET PO SCH (11:25)
[2021-04-29] MEDS: amLODIPine 5 MG TABLET PO SCH (11:26)
[2021-04-29] MEDS: FUROSEMIDE 40 MG/4 ML VIAL IV SCH (11:26)
[2021-04-29] MEDS: FERROUS GLUCONATE 324 MG TABLET PO SCH (11:26)
[2021-04-29] MEDS: ISOSORBIDE MONONITRATE 60 MG TABLET PO SCH (11:26)
[2021-04-29] MEDS: MYCOPHENOLATE MOFETIL 250 MG CAPSULE PO SCH (11:26)
[2021-04-29] MEDS: TACROLIMUS 0.5 MG CAPSULE PO SCH (11:27)
[2021-04-29] MEDS: CHLORHEXIDINE 0.12% ORAL RINSE 60 ML BOTTLE SWISH/SPIT SCH ×2 (11:27→21:50)
[2021-04-29] MEDS: ASCORBIC ACID 500 MG TABLET PO SCH (11:27)
[2021-04-29] MEDS: SODIUM CHLORIDE 0.45% 1,000 ML IV SCH ×2 (12:25)
[2021-04-29] MEDS: PHENYLEPHRINE DRIP 40 MG/250 ML PREMIX IV PRN (12:25)
[2021-04-29] MEDS ORDERED: INSULIN REGULAR 100 UNIT/ML IV ONE (12:46)
[2021-04-29] MEDS ORDERED: NITROPRUSSIDE 100 MG in DEXTROSE 5% 250 ML IV PRN (12:46)
[2021-04-29] MEDS ORDERED: MAGNESIUM SULF RIDER 2 GM/50 ML PREMIX IV PRN (12:46)
[2021-04-29] MEDS ORDERED: MAGNESIUM SULF RIDER 4 GM/100 ML PREMIX IV PRN (12:46)
[2021-04-29] MEDS ORDERED: CHLORHEXIDINE 4% SOLN 118 ML BOTTLE TOP PRN (12:46)
[2021-04-29] MEDS ORDERED: MIDAZOLAM 2 MG/2 ML VIAL IV PRN (12:46)
[2021-04-29] MEDS ORDERED: ONDANSETRON 4 MG/2 ML VIAL IV PRN (12:46)
[2021-04-29] MEDS ORDERED: LACTATED RINGERS 250 ML IV PRN (12:46)
[2021-04-29] MEDS ORDERED: MORPHINE 10 MG/1 ML VIAL IV PRN (12:46)
[2021-04-29] MEDS ORDERED: CALCIUM CHLORIDE 1,000 MG/10 ML SYRINGE IV PRN (12:46)
[2021-04-29] MEDS ORDERED: INSULIN REGULAR 100 UNIT/ML IV PRN (12:46)
[2021-04-29] MEDS ORDERED: POTASSIUM CHLORIDE RIDER 10 MEQ/100 ML PREMIX IV PRN (12:46)
[2021-04-29] MEDS ORDERED: ACETAMINOPHEN 650 MG SUPP RECTAL PRN (12:46)
[2021-04-29] MEDS ORDERED: DEXTROSE 50% 25 GM/50 ML VIAL IV PRN ×2 (12:46)
[2021-04-29] MEDS ORDERED: VECURONIUM 10 MG VIAL IV PRN ×2 (12:46)
[2021-04-29] MEDS ORDERED: MIDAZOLAM 10 MG/2 ML VIAL IV PRN (12:46)
[2021-04-29 12:52] LABS: ABG Base Excess 3.1 MMOL/L (-2.5-2.5); ABG HCO3 27.2 MMOL/L (20-26); ABG Oxygen Saturation 98.4 % (95-100); ABG PCO2 39.3 MM HG (35-48); ABG PH 7.458 (7.35-7.45); ABG PO2 178.7 MM HG (80-95); ABG TCO2 28.4 MMOL/L (23-27); Glucose Heart Surgery 247 MG/DL (74-106); Hemoglobin Heart Surgery 8.5 G/DL (14.0-18.0); Potassium Heart/CVR 4.8 MMOL/L (3.5-5.1)
[2021-04-29 12:54] LABS: Eosinophils % 0.3 % (0.00-10.9); Hematocrit 26.5 VOL% (42.0-52.0); Immature Granulocytes % 1.1 %; Immature Granulocytes Absolute 0.07 #; Lymphocytes # 0.5 10*3/uL (1.4-4.0); Mean Corpuscular HGB Conc 30.2 GM/DL (32-36); Mean Corpuscular Volume 83.6 FL (87-102); Mean Platelet Volume 11.8 FL (9.6-12.0); Monocytes % 3.8 % (1.7-12.7); Neutrophils % 87.8 % (38.7-73.9); Platelet Count 114 T/CUMM (130-400); Red Blood Count 3.17 MC/CUMM (3.8-5.5); Red Cell Distribution Width 14.8 % (9.3-17.3); White Blood Count 6.6 T/CUMM (4-12)
[2021-04-29 13:10] LABS: INR 1.1; PT Patient Result 12.5 SECS (10.5-12.0); Partial Thromboplastin Time 26.3 SECS (23.9-33.8)
[2021-04-29 13:19] LABS: Albumin 3.2 G/DL (3.4-5.0); Bilirubin,Total 2.5 MG/DL (0.20-1.00); Calcium 9.6 MG/DL (8.5-10.1); Osmolality,Calculated 286.4 MOS/KG (273-304); Potassium 4.9 MMOL/L (3.5-5.1)
[2021-04-29 13:25] LABS: CKMB % 9.3 %
[2021-04-29] MEDS ORDERED: FUROSEMIDE 40 MG/4 ML VIAL IV ONE (13:30)
[2021-04-29 13:32] LABS: High Sensitive Troponin I* 14084.4 ng/L (0-78)
[2021-04-29] MEDS: LACTATED RINGERS 1,000 ML IV PRN ×3 (14:00→21:30)
[2021-04-29] MEDS: FUROSEMIDE INJ 100 MG in SODIUM CHLORIDE 0.9% 90 ML IV SCH ×3 (14:40→23:27)
[2021-04-29] MEDS: INSULIN REGULAR DRIP 100 ML IV SCH (14:45)
[2021-04-29] MEDS: ALBUMIN 5% 12.5 GM/250 ML VIAL IV PRN ×3 (16:10→23:26)
[2021-04-29 16:27] LABS: ABG Base Excess 0.6 MMOL/L (-2.5-2.5); ABG PCO2 38.8 MM HG (35-48); ABG PH 7.417 (7.35-7.45); ABG TCO2 22.6 MMOL/L (23-27); Glucose Heart Surgery 199 MG/DL (74-106); Hematocrit Heart Surgery 31.8 PERCENT (42-52); Hemoglobin Heart Surgery 10.3 G/DL (14.0-18.0); Potassium Heart/CVR 4.1 MMOL/L (3.5-5.1)
[2021-04-29] MEDS: POTASSIUM CHLORIDE RIDER 20 MEQ/100 ML PREMIX IV PRN (16:45)
[2021-04-29] MEDS: CEFUROXIME INJ 1,500 MG in SODIUM CHLORIDE 0.9% 100 ML IV SCH (19:53)
[2021-04-29 20:08] LABS: ABG Base Excess 1.6 MMOL/L (-2.5-2.5); ABG HCO3 25.9 MMOL/L (20-26); ABG Oxygen Saturation 99.7 % (95-100); ABG PCO2 36.4 MM HG (35-48); ABG PH 7.452 (7.35-7.45); ABG TCO2 23.2 MMOL/L (23-27); Glucose Heart Surgery 120 MG/DL (74-106); Hematocrit Heart Surgery 29.2 PERCENT (42-52); Hemoglobin Heart Surgery 9.4 G/DL (14.0-18.0); Potassium Heart/CVR 4.1 MMOL/L (3.5-5.1)
[2021-04-29 20:32] LABS: CKMB % 9.2 %; High Sensitive Troponin I* 14549.7 ng/L (0-78)
[2021-04-29] MEDS: DEXMEDETOMIDINE 400 MCG in SODIUM CHLORIDE 0.9% 96 ML IV PRN (21:21)
[2021-04-29 23:47] LABS: ABG Base Excess 0.9 MMOL/L (-2.5-2.5); ABG HCO3 25.9 MMOL/L (20-26); ABG Oxygen Saturation 97.9 % (95-100); ABG PCO2 43.1 MM HG (35-48); ABG PH 7.397 (7.35-7.45); ABG PO2 132.9 MM HG (80-95); ABG TCO2 27.2 MMOL/L (23-27); Glucose Heart Surgery 151 MG/DL (74-106); Hemoglobin Heart Surgery 9.9 G/DL (14.0-18.0); Potassium Heart/CVR 3.8 MMOL/L (3.5-5.1)
[2021-04-30] MEDS: POTASSIUM CHLORIDE RIDER 20 MEQ/100 ML PREMIX IV PRN (00:17)
[2021-04-30] MEDS: ALBUMIN 5% 12.5 GM/250 ML VIAL IV PRN (00:20)
[2021-04-30 02:02] LABS: ABG HCO3 24.4 MMOL/L (20-26); ABG Oxygen Saturation 98.2 % (95-100); ABG PCO2 35.6 MM HG (35-48); ABG PH 7.435 (7.35-7.45); ABG PO2 96.8 MM HG (80-95); ABG TCO2 21.9 MMOL/L (23-27); Glucose Heart Surgery 148 MG/DL (74-106); Hematocrit Heart Surgery 29.1 PERCENT (42-52); Hemoglobin Heart Surgery 9.4 G/DL (14.0-18.0); Potassium Heart/CVR 4.3 MMOL/L (3.5-5.1)
[2021-04-30 04:16] LABS: ABG Base Excess 0.3 MMOL/L (-2.5-2.5); ABG HCO3 24.7 MMOL/L (20-26); ABG Oxygen Saturation 99.1 % (95-100); ABG PCO2 38.1 MM HG (35-48); ABG PH 7.418 (7.35-7.45); ABG TCO2 22.4 MMOL/L (23-27); Glucose Heart Surgery 140 MG/DL (74-106); Hematocrit Heart Surgery 30.3 PERCENT (42-52); Hemoglobin Heart Surgery 9.8 G/DL (14.0-18.0); Potassium Heart/CVR 4.1 MMOL/L (3.5-5.1)
[2021-04-30] MEDS: FUROSEMIDE INJ 100 MG in SODIUM CHLORIDE 0.9% 90 ML IV SCH ×4 (04:17→20:00)
[2021-04-30 04:32] LABS: Basophils % 0.1 % (0.0-0.8); Hematocrit 27.6 VOL% (42.0-52.0); Hemoglobin 8.7 GM/DL (14.0-18.0); Immature Granulocytes % 0.5 %; Immature Granulocytes Absolute 0.04 #; Lymphocytes # 0.3 10*3/uL (1.4-4.0); Mean Corpuscular HGB Conc 31.5 GM/DL (32-36); Mean Corpuscular Volume 83.1 FL (87-102); Mean Platelet Volume 10.5 FL (9.6-12.0); Monocytes % 2.3 % (1.7-12.7); Neutrophils % 93.1 % (38.7-73.9); Platelet Count 57 T/CUMM (130-400); Red Blood Count 3.32 MC/CUMM (3.8-5.5); Red Cell Distribution Width 15.1 % (9.3-17.3); White Blood Count 7.6 T/CUMM (4-12)
[2021-04-30 04:52] LABS: Hypochromasia 1+; Lymphocytes 4 % (20-55); Microcytosis 1+; Platelet Estimate Decreased; Segmented Neutrophils 95 % (50-85); Total Cells Counted 100
[2021-04-30 05:01] LABS: CKMB % 10.2 %; High Sensitive Troponin I* 9401.4 ng/L (0-78)
[2021-04-30 05:04] LABS: Albumin 3.7 G/DL (3.4-5.0); Bilirubin,Direct 0.4 MG/DL (0.0-0.20); Bilirubin,Total 2.3 MG/DL (0.20-1.00); Calcium 8.8 MG/DL (8.5-10.1); Osmolality,Calculated 291.5 MOS/KG (273-304); Potassium 4.2 MMOL/L (3.5-5.1); Total Protein 5.4 G/DL (6.4-8.2)
[2021-04-30] MEDS ORDERED: MORPHINE 2 MG/1 ML SYRINGE ONE (07:17)
[2021-04-30] MEDS: MORPHINE 2 MG/1 ML SYRINGE IV PRN ×2 (07:20→21:34)
[2021-04-30 07:41] LABS: ABG Base Excess 0.2 MMOL/L (-2.5-2.5); ABG HCO3 24.6 MMOL/L (20-26); ABG Oxygen Saturation 98.2 % (95-100); ABG PCO2 33.7 MM HG (35-48); ABG PH 7.454 (7.35-7.45); ABG PO2 96.5 MM HG (80-95); ABG TCO2 21.5 MMOL/L (23-27); Glucose Heart Surgery 146 MG/DL (74-106); Hematocrit Heart Surgery 30.3 PERCENT (42-52); Hemoglobin Heart Surgery 9.8 G/DL (14.0-18.0); Potassium Heart/CVR 4.1 MMOL/L (3.5-5.1)
[2021-04-30] MEDS: CEFUROXIME INJ 1,500 MG in SODIUM CHLORIDE 0.9% 100 ML IV SCH ×2 (07:46→20:52)
[2021-04-30] MEDS ORDERED: ASPIRIN CHEW 81 MG TABLET PO SCH (09:00)
[2021-04-30] MEDS ORDERED: PANTOPRAZOLE 40 MG VIAL IV ONE (09:00)
[2021-04-30] MEDS: ASCORBIC ACID 500 MG TABLET PO SCH ×2 (09:25→20:55)
[2021-04-30] MEDS: CHLORHEXIDINE 0.12% ORAL RINSE 60 ML BOTTLE SWISH/SPIT SCH ×2 (09:26→20:55)
[2021-04-30] MEDS: SODIUM CHLORIDE 0.45% 1,000 ML IV SCH ×2 (14:11)
[2021-04-30] MEDS: INSULIN REGULAR DRIP 100 ML IV SCH (14:12)
[2021-04-30 15:02] LABS: ABG Base Excess -1.8 MMOL/L (-2.5-2.5); ABG HCO3 22.9 MMOL/L (20-26); ABG Oxygen Saturation 98.7 % (95-100); ABG PCO2 40.8 MM HG (35-48); ABG PH 7.366 (7.35-7.45); ABG TCO2 21.5 MMOL/L (23-27); Glucose Heart Surgery 149 MG/DL (74-106); Hematocrit Heart Surgery 28.8 PERCENT (42-52); Hemoglobin Heart Surgery 9.3 G/DL (14.0-18.0); Potassium Heart/CVR 4.3 MMOL/L (3.5-5.1)
[2021-04-30 15:20] LABS: CKMB % 8.4 %; High Sensitive Troponin I* 6253.4 ng/L (0-78)
[2021-04-30 15:25] LABS: Calcium 8.8 MG/DL (8.5-10.1); Osmolality,Calculated 298.4 MOS/KG (273-304); Potassium 4.3 MMOL/L (3.5-5.1)
[2021-04-30] MEDS ORDERED: DOBUTamine 500 MG/250 ML PREMIX IV PRN (15:51)
[2021-04-30] MEDS: INSULIN REGULAR 100 UNIT/ML SUBCUT SCH (20:52)
[2021-04-30] MEDS: CALCIUM (CARBONATE)/VITAMIN D 600 MG-400 UNIT TABLET PO SCH (20:53)
[2021-04-30] MEDS: SIMVASTATIN 20 MG TABLET PO SCH (20:54)
[2021-04-30] MEDS: APREMILAST 30 MG PO SCH (20:56)
[2021-04-30] MEDS: MYCOPHENOLATE MOFETIL 250 MG CAPSULE PO SCH (21:41)
[2021-05-01 01:24] LABS: ABG HCO3 23.1 MMOL/L (20-26); ABG PCO2 40.8 MM HG (35-48); ABG PH 7.371 (7.35-7.45); ABG TCO2 24.4 MMOL/L (23-27); Glucose Heart Surgery 274 MG/DL (74-106); Hemoglobin Heart Surgery 9.2 G/DL (14.0-18.0); Potassium Heart/CVR 4.1 MMOL/L (3.5-5.1)
[2021-05-01] MEDS: FUROSEMIDE INJ 100 MG in SODIUM CHLORIDE 0.9% 90 ML IV SCH ×5 (01:34→21:38)
[2021-05-01] MEDS: MORPHINE 2 MG/1 ML SYRINGE IV PRN (03:32)
[2021-05-01 03:54] LABS: ABG Base Excess -3.3 MMOL/L (-2.5-2.5); ABG HCO3 21.7 MMOL/L (20-26); ABG Oxygen Saturation 98.6 % (95-100); ABG PCO2 39.7 MM HG (35-48); ABG PH 7.352 (7.35-7.45); ABG TCO2 20.4 MMOL/L (23-27); Glucose Heart Surgery 283 MG/DL (74-106); Hematocrit Heart Surgery 27.6 PERCENT (42-52); Hemoglobin Heart Surgery 8.9 G/DL (14.0-18.0); Potassium Heart/CVR 4.2 MMOL/L (3.5-5.1)
[2021-05-01 04:04] LABS: Hematocrit 27.3 VOL% (42.0-52.0); Hemoglobin 8.5 GM/DL (14.0-18.0); Immature Granulocytes % 0.7 %; Immature Granulocytes Absolute 0.03 #; Lymphocytes # 0.1 10*3/uL (1.4-4.0); Mean Corpuscular HGB Conc 31.1 GM/DL (32-36); Mean Corpuscular Volume 85.8 FL (87-102); Monocytes % 4.1 % (1.7-12.7); Neutrophils % 93.2 % (38.7-73.9); Red Blood Count 3.18 MC/CUMM (3.8-5.5); Red Cell Distribution Width 15.7 % (9.3-17.3); White Blood Count 4.6 T/CUMM (4-12)
[2021-05-01 04:09] LABS: Platelet Count 36 T/CUMM (130-400)
[2021-05-01 04:24] LABS: Lymphocytes 2 % (20-55); Segmented Neutrophils 94 % (50-85); Total Cells Counted 100
[2021-05-01 04:25] LABS: Albumin 3.3 G/DL (3.4-5.0); Bilirubin,Direct 0.32 MG/DL (0.0-0.20); Bilirubin,Total 1.1 MG/DL (0.20-1.00); Hypochromasia 1+; Microcytosis 1+; Osmolality,Calculated 306.7 MOS/KG (273-304); Ovalocytes Slight; Platelet Estimate Decreased; Potassium 4.2 MMOL/L (3.5-5.1); Total Protein 5.6 G/DL (6.4-8.2)
[2021-05-01] MEDS ORDERED: AMIODARONE INJ 150 MG in DEXTROSE 5% 100 ML IV ONE (04:32)
[2021-05-01] MEDS: PHENYLEPHRINE DRIP 40 MG/250 ML PREMIX IV PRN (04:50)
[2021-05-01] MEDS ORDERED: AMIODARONE INJ 450 MG in DEXTROSE 5% 241 ML IV SCH (05:00)
[2021-05-01] MEDS: DEXMEDETOMIDINE 400 MCG in SODIUM CHLORIDE 0.9% 96 ML IV PRN (07:30)
[2021-05-01] MEDS: INSULIN REGULAR 100 UNIT/ML SUBCUT SCH ×4 (07:49→20:59)
[2021-05-01] MEDS: HYDROCORTISONE 100 MG VIAL IV SCH ×3 (07:49→23:42)
[2021-05-01] MEDS: APREMILAST 30 MG PO SCH ×2 (08:58→20:58)
[2021-05-01] MEDS: TACROLIMUS 0.5 MG CAPSULE PO SCH (08:59)
[2021-05-01] MEDS: ASCORBIC ACID 500 MG TABLET PO SCH ×2 (08:59→21:00)
[2021-05-01] MEDS: CHLORHEXIDINE 0.12% ORAL RINSE 60 ML BOTTLE SWISH/SPIT SCH ×2 (08:59→21:00)
[2021-05-01] MEDS ORDERED: PANTOPRAZOLE 40 MG VIAL IV SCH (09:00)
[2021-05-01 10:11] LABS: ABG Base Excess -2.9 MMOL/L (-2.5-2.5); ABG Oxygen Saturation 97.5 % (95-100); ABG PCO2 34.4 MM HG (35-48); ABG PO2 92.7 MM HG (80-95); ABG TCO2 19.5 MMOL/L (23-27); Glucose Heart Surgery 288 MG/DL (74-106); Hematocrit Heart Surgery 29.5 PERCENT (42-52); Hemoglobin Heart Surgery 9.5 G/DL (14.0-18.0); Potassium Heart/CVR 4.5 MMOL/L (3.5-5.1)
[2021-05-01] MEDS: AMIODARONE INJ 450 MG in DEXTROSE 5% 241 ML IV SCH (12:00)
[2021-05-01] MEDS: SODIUM CHLORIDE 0.45% 1,000 ML IV SCH ×2 (12:00→12:49)
[2021-05-01] MEDS: MYCOPHENOLATE MOFETIL PO SCH ×2 (12:43→21:01)
[2021-05-01] MEDS: [UNRECOGNIZED DRUG - OTHER] PO SCH ×2 (12:43→21:01)
[2021-05-01] MEDS: MYCOPHENOLATE MOFETIL 250 MG CAPSULE PO SCH (12:47)
[2021-05-01] MEDS: INSULIN GLARGINE 100 UNIT/ML SUBCUT SCH (12:48)
[2021-05-01] MEDS: CALCIUM (CARBONATE)/VITAMIN D 600 MG-400 UNIT TABLET PO SCH (20:59)
[2021-05-01] MEDS: SIMVASTATIN 20 MG TABLET PO SCH (21:00)
[2021-05-01] MEDS ORDERED: METOPROLOL TARTRATE 5 MG/5 ML VIAL IV ONE ×2 (23:32→23:49)
[2021-05-02] MEDS: METOPROLOL TARTRATE 5 MG/5 ML VIAL IV PRN ×2 (02:08→05:08)
[2021-05-02] MEDS: FUROSEMIDE INJ 100 MG in SODIUM CHLORIDE 0.9% 90 ML IV SCH ×6 (03:11→20:34)
[2021-05-02] MEDS: AMIODARONE INJ 450 MG in DEXTROSE 5% 241 ML IV SCH ×2 (03:11→18:43)
[2021-05-02 03:55] LABS: Hematocrit 30.2 VOL% (42.0-52.0); Hemoglobin 9.8 GM/DL (14.0-18.0); Immature Granulocytes % 1.1 %; Immature Granulocytes Absolute 0.13 #; Lymphocytes # 0.3 10*3/uL (1.4-4.0); Lymphocytes % 2.4 % (21.2-54.2); Mean Corpuscular HGB Conc 32.5 GM/DL (32-36); Mean Corpuscular Volume 84.8 FL (87-102); Mean Platelet Volume 11.9 FL (9.6-12.0); Monocytes % 5.3 % (1.7-12.7); Neutrophils % 91.2 % (38.7-73.9); Platelet Count 52 T/CUMM (130-400); Red Blood Count 3.56 MC/CUMM (3.8-5.5); Red Cell Distribution Width 16.3 % (9.3-17.3); White Blood Count 11.4 T/CUMM (4-12)
[2021-05-02 04:18] LABS: Albumin 3.3 G/DL (3.4-5.0); Bilirubin,Direct 0.34 MG/DL (0.0-0.20); Bilirubin,Total 1.4 MG/DL (0.20-1.00); Calcium 7.9 MG/DL (8.5-10.1); Osmolality,Calculated 306.8 MOS/KG (273-304); Potassium 3.7 MMOL/L (3.5-5.1); Total Protein 5.8 G/DL (6.4-8.2)
[2021-05-02 04:31] LABS: Band Neutrophils 1 % (0-10); Hypochromasia Slight; Lymphocytes 1 % (20-55); Platelet Estimate Decreased; Segmented Neutrophils 95 % (50-85); Total Cells Counted 100
[2021-05-02] MEDS ORDERED: AMIODARONE INJ 100 MG in DEXTROSE 5% 100 ML IV ONE (05:20)
[2021-05-02] MEDS ORDERED: DILTIAZEM 25 MG/5 ML VIAL IV ONE (05:21)
[2021-05-02] MEDS ORDERED: AMIODARONE 150 MG/3 ML VIAL ONE (05:26)
[2021-05-02] MEDS ORDERED: DILTIAZEM INJ 100 MG in SODIUM CHLORIDE 0.9% 100 ML IV SCH (05:30)
[2021-05-02] MEDS: APREMILAST 30 MG PO SCH ×2 (08:00→20:13)
[2021-05-02] MEDS: ASCORBIC ACID 500 MG TABLET PO SCH ×2 (08:06→20:14)
[2021-05-02] MEDS: TACROLIMUS 0.5 MG CAPSULE PO SCH (08:06)
[2021-05-02] MEDS: HYDROCORTISONE 100 MG VIAL IV SCH ×2 (08:06→16:59)
[2021-05-02] MEDS: PANTOPRAZOLE 40 MG TABLET PO SCH (08:07)
[2021-05-02] MEDS: INSULIN GLARGINE 100 UNIT/ML SUBCUT SCH (08:08)
[2021-05-02] MEDS: [UNRECOGNIZED DRUG - OTHER] PO SCH ×2 (08:10→20:14)
[2021-05-02] MEDS: MYCOPHENOLATE MOFETIL PO SCH ×2 (08:10→20:14)
[2021-05-02] MEDS: CHLORHEXIDINE 0.12% ORAL RINSE 60 ML BOTTLE SWISH/SPIT SCH ×2 (08:10→20:14)
[2021-05-02] MEDS ORDERED: DILTIAZEM CD 120 MG CAPSULE PO SCH (09:00)
[2021-05-02] MEDS ORDERED: METOPROLOL SUCCINATE XL 25 MG TABLET PO SCH (09:00)
[2021-05-02] MEDS: INSULIN REGULAR 100 UNIT/ML SUBCUT SCH ×4 (09:05→18:43)
[2021-05-02] MEDS: SODIUM CHLORIDE 0.45% 1,000 ML IV SCH ×2 (13:33)
[2021-05-02] MEDS: ALBUMIN 5% 12.5 GM/250 ML VIAL IV PRN ×2 (14:26→14:56)
[2021-05-02] MEDS: CALCIUM (CARBONATE)/VITAMIN D 600 MG-400 UNIT TABLET PO SCH (20:14)
[2021-05-02] MEDS: SIMVASTATIN 10 MG TABLET PO SCH (20:14)
[2021-05-03] MEDS: INSULIN REGULAR 100 UNIT/ML SUBCUT SCH ×5 (00:02→22:27)
[2021-05-03] MEDS: HYDROCORTISONE 100 MG VIAL IV SCH (00:02)
[2021-05-03] MEDS: FUROSEMIDE INJ 100 MG in SODIUM CHLORIDE 0.9% 90 ML IV SCH (02:00)
[2021-05-03 04:25] LABS: Hematocrit 27.5 VOL% (42.0-52.0); Hemoglobin 8.7 GM/DL (14.0-18.0); Immature Granulocytes Absolute 0.07 #; Lymphocytes # 0.2 10*3/uL (1.4-4.0); Lymphocytes % 3.3 % (21.2-54.2); Mean Corpuscular HGB Conc 31.6 GM/DL (32-36); Mean Corpuscular Volume 85.9 FL (87-102); Mean Platelet Volume 12.2 FL (9.6-12.0); Monocytes % 5.3 % (1.7-12.7); Neutrophils % 90.4 % (38.7-73.9); Red Cell Distribution Width 15.9 % (9.3-17.3)
[2021-05-03 04:34] LABS: Platelet Count 48 T/CUMM (130-400); White Blood Count 7.2 T/CUMM (4-12)
[2021-05-03 04:38] LABS: Calcium 7.9 MG/DL (8.5-10.1); Osmolality,Calculated 304.7 MOS/KG (273-304); Potassium 3.2 MMOL/L (3.5-5.1)
[2021-05-03 04:50] LABS: Band Neutrophils 1 % (0-10); Lymphocytes 2 % (20-55); Platelet Estimate Decreased; Segmented Neutrophils 94 % (50-85); Total Cells Counted 100
[2021-05-03 04:51] LABS: Elliptocytes Few
[2021-05-03 04:52] LABS: Tear Drop Cells Few
[2021-05-03] MEDS: NYSTATIN 500,000 UNIT/5 ML UDCUP SWISH/SWAL SCH ×4 (08:18→22:30)
[2021-05-03] MEDS: ASCORBIC ACID 500 MG TABLET PO SCH ×2 (08:20→22:29)
[2021-05-03] MEDS: MYCOPHENOLATE MOFETIL 250 MG CAPSULE PO SCH ×2 (08:20→22:28)
[2021-05-03] MEDS: FUROSEMIDE 40 MG/4 ML VIAL IV SCH ×2 (08:20→16:59)
[2021-05-03] MEDS: PANTOPRAZOLE 40 MG TABLET PO SCH (08:21)
[2021-05-03] MEDS: predniSONE 20 MG TABLET PO SCH ×2 (08:22→22:29)
[2021-05-03] MEDS: TACROLIMUS 0.5 MG CAPSULE PO SCH (08:23)
[2021-05-03] MEDS: METOPROLOL SUCCINATE XL 50 MG TABLET PO SCH (08:23)
[2021-05-03] MEDS: INSULIN GLARGINE 100 UNIT/ML SUBCUT SCH (08:24)
[2021-05-03] MEDS ORDERED: AMIODARONE 200 MG TABLET PO SCH (09:00)
[2021-05-03] MEDS: APREMILAST 30 MG PO SCH ×2 (09:02→23:03)
[2021-05-03] MEDS: CHLORHEXIDINE 0.12% ORAL RINSE 60 ML BOTTLE SWISH/SPIT SCH ×2 (09:03→22:35)
[2021-05-03] MEDS: AMIODARONE INJ 450 MG in DEXTROSE 5% 241 ML IV SCH (10:00)
[2021-05-03] MEDS ORDERED: AMIODARONE 450 MG/9 ML VIAL IV ONE (10:01)
[2021-05-03] MEDS: POTASSIUM CHLORIDE RIDER 20 MEQ/100 ML PREMIX IV PRN (12:02)
[2021-05-03] MEDS: SODIUM CHLORIDE 0.45% 1,000 ML IV SCH ×2 (14:04)
[2021-05-03] MEDS ORDERED: GLUCAGON 1 MG VIAL IM PRN (16:00)
[2021-05-03] MEDS ORDERED: POTASSIUM CHLORIDE 20 MEQ TABLET PO PRN (16:00)
[2021-05-03] MEDS ORDERED: ONDANSETRON 4 MG/2 ML VIAL IV PRN (16:00)
[2021-05-03] MEDS ORDERED: DEXTROSE 50% 25 GM/50 ML VIAL IV PRN (16:00)
[2021-05-03] MEDS ORDERED: MAGNESIUM HYDROXIDE SUSP 30 ML UDCUP PO PRN (16:00)
[2021-05-03] MEDS ORDERED: ACETAMINOPHEN 325 MG TABLET PO PRN (16:00)
[2021-05-03] MEDS ORDERED: MAGNESIUM SULF RIDER 2 GM/50 ML PREMIX IV PRN (16:00)
[2021-05-03] MEDS ORDERED: ZALEPLON 5 MG CAPSULE PO PRN (16:00)
[2021-05-03] MEDS ORDERED: MAGNESIUM SULF RIDER 4 GM/100 ML PREMIX IV PRN (16:00)
[2021-05-03] MEDS ORDERED: ALUMINUM/MAGNES/SIMETH MAX STR 30 ML UDCUP PO PRN (16:00)
[2021-05-03] MEDS: SIMVASTATIN 10 MG TABLET PO SCH (22:29)
[2021-05-03] MEDS: AMIODARONE 200 MG TABLET PO SCH (22:29)
[2021-05-03] MEDS: CALCIUM (CARBONATE)/VITAMIN D 600 MG-400 UNIT TABLET PO SCH (23:03)
[2021-05-04 07:52] LABS: Hematocrit 27.9 VOL% (42.0-52.0); Hemoglobin 8.7 GM/DL (14.0-18.0); Immature Granulocytes % 1.2 %; Immature Granulocytes Absolute 0.06 #; Lymphocytes # 0.2 10*3/uL (1.4-4.0); Lymphocytes % 4.8 % (21.2-54.2); Mean Corpuscular HGB Conc 31.2 GM/DL (32-36); Mean Corpuscular Volume 86.6 FL (87-102); Mean Platelet Volume 11.4 FL (9.6-12.0); Monocytes % 4.4 % (1.7-12.7); Neutrophils % 89.6 % (38.7-73.9); Red Blood Count 3.22 MC/CUMM (3.8-5.5)
[2021-05-04 07:55] LABS: Platelet Count 55 T/CUMM (130-400)
[2021-05-04 08:10] LABS: Alanine Aminotransferase 17 U/L (16-61); Albumin 3.1 G/DL (3.4-5.0); Alkaline Phosphatase 53 U/L (45-117); Aspartate Amino Transferase 12 U/L (0-37); Bilirubin,Indirect 0.5 MG/DL (0.0-1.0); Blood Urea Nitrogen 91 MG/DL (7-18); Calcium 7.8 MG/DL (8.5-10.1); Carbon Dioxide 32 MMOL/L (21-32); Estimated Glom Filtration Rate 29 ML/MIN; Glucose 143 MG/DL (74-106); Osmolality,Calculated 302.8 MOS/KG (273-304); Potassium 3.3 MMOL/L (3.5-5.1); Sodium 137 MMOL/L (136-145); Total Protein 5.4 G/DL (6.4-8.2)
[2021-05-04 08:25] LABS: Hypochromasia 1+; Lymphocytes 7 % (20-55); Microcytosis 1+; Platelet Estimate Decreased; Segmented Neutrophils 91 % (50-85); Total Cells Counted 100
[2021-05-04] MEDS ORDERED: DOCUSATE SODIUM 100 MG CAPSULE PO SCH (09:00)
[2021-05-04] MEDS: FUROSEMIDE 40 MG/4 ML VIAL IV SCH ×2 (10:01→16:50)
[2021-05-04] MEDS: APREMILAST 30 MG PO SCH ×2 (10:02→22:27)
[2021-05-04] MEDS: INSULIN GLARGINE 100 UNIT/ML SUBCUT SCH (10:02)
[2021-05-04] MEDS: INSULIN REGULAR 100 UNIT/ML SUBCUT SCH ×4 (10:02→22:16)
[2021-05-04] MEDS: CHLORHEXIDINE 0.12% ORAL RINSE 60 ML BOTTLE SWISH/SPIT SCH ×2 (10:03→22:17)
[2021-05-04] MEDS: PANTOPRAZOLE 40 MG TABLET PO SCH (10:03)
[2021-05-04] MEDS: NYSTATIN 500,000 UNIT/5 ML UDCUP SWISH/SWAL SCH ×4 (10:03→22:13)
[2021-05-04] MEDS: POTASSIUM CHLORIDE 20 MEQ TABLET PO SCH (10:03)
[2021-05-04] MEDS: FERROUS SULFATE 325 MG TABLET PO SCH (10:03)
[2021-05-04] MEDS: METOPROLOL SUCCINATE XL 50 MG TABLET PO SCH (10:04)
[2021-05-04] MEDS: TACROLIMUS 0.5 MG CAPSULE PO SCH (10:04)
[2021-05-04] MEDS: MYCOPHENOLATE MOFETIL 250 MG CAPSULE PO SCH ×2 (10:04→22:14)
[2021-05-04] MEDS: ASCORBIC ACID 500 MG TABLET PO SCH ×2 (10:04→22:14)
[2021-05-04] MEDS: AMIODARONE 200 MG TABLET PO SCH ×2 (10:05→22:15)
[2021-05-04] MEDS: predniSONE 20 MG TABLET PO SCH (10:05)
[2021-05-04] MEDS ORDERED: PHENOL 1.4% THROAT SPRAY 177 ML BOTTLE PO PRN (15:10)
[2021-05-04] MEDS ORDERED: POLYETHYLENE GLYCOL POWDER 17 GM PACK PO PRN (15:11)
[2021-05-04] MEDS: CALCIUM (CARBONATE)/VITAMIN D 600 MG-400 UNIT TABLET PO SCH (22:13)
[2021-05-04] MEDS: SIMVASTATIN 10 MG TABLET PO SCH (22:14)
[2021-05-04] MEDS: DOCUSATE SODIUM 100 MG CAPSULE PO SCH (22:15)
[2021-05-05 04:49] LABS: Basophils % 0.1 % (0.0-0.8); Hematocrit 31.3 VOL% (42.0-52.0); Hemoglobin 9.8 GM/DL (14.0-18.0); Immature Granulocytes % 2.3 %; Immature Granulocytes Absolute 0.18 #; Lymphocytes # 0.5 10*3/uL (1.4-4.0); Mean Corpuscular HGB Conc 31.3 GM/DL (32-36); Mean Corpuscular Volume 84.6 FL (87-102); Mean Platelet Volume 9.3 FL (9.6-12.0); Monocytes % 9.5 % (1.7-12.7); NRBC # 0.02 10*3/uL; Neutrophils % 81.1 % (38.7-73.9); Red Cell Distribution Width 16.2 % (9.3-17.3)
[2021-05-05 04:51] LABS: Platelet Count 65 T/CUMM (130-400); White Blood Count 7.8 T/CUMM (4-12)
[2021-05-05 05:10] LABS: Hypochromasia 1+; Lymphocytes 5 % (20-55); Microcytosis 1+; Platelet Estimate Decreased; Segmented Neutrophils 89 % (50-85); Total Cells Counted 100
[2021-05-05 05:27] LABS: Alanine Aminotransferase 18 U/L (16-61); Albumin 3.5 G/DL (3.4-5.0); Alkaline Phosphatase 65 U/L (45-117); Aspartate Amino Transferase 14 U/L (0-37); Bilirubin,Indirect 0.6 MG/DL (0.0-1.0); Blood Urea Nitrogen 95 MG/DL (7-18); Calcium 8.1 MG/DL (8.5-10.1); Carbon Dioxide 34 MMOL/L (21-32); Estimated Glom Filtration Rate 32 ML/MIN; Glucose 75 MG/DL (74-106); Osmolality,Calculated 300.8 MOS/KG (273-304); Potassium 3.3 MMOL/L (3.5-5.1); Sodium 137 MMOL/L (136-145); Total Protein 5.9 G/DL (6.4-8.2)
[2021-05-05] MEDS: NYSTATIN 500,000 UNIT/5 ML UDCUP SWISH/SWAL SCH ×4 (09:59→21:48)
[2021-05-05] MEDS: INSULIN GLARGINE 100 UNIT/ML SUBCUT SCH (09:59)
[2021-05-05] MEDS: FUROSEMIDE 40 MG/4 ML VIAL IV SCH ×2 (10:00→17:03)
[2021-05-05] MEDS: TACROLIMUS 0.5 MG CAPSULE PO SCH (10:00)
[2021-05-05] MEDS: METOPROLOL SUCCINATE XL 50 MG TABLET PO SCH (10:00)
[2021-05-05] MEDS: POTASSIUM CHLORIDE 20 MEQ TABLET PO SCH (10:00)
[2021-05-05] MEDS: DOCUSATE SODIUM 100 MG CAPSULE PO SCH ×2 (10:00→21:50)
[2021-05-05] MEDS: ASCORBIC ACID 500 MG TABLET PO SCH ×2 (10:01→21:48)
[2021-05-05] MEDS: MYCOPHENOLATE MOFETIL 250 MG CAPSULE PO SCH ×2 (10:01→21:48)
[2021-05-05] MEDS: AMIODARONE 200 MG TABLET PO SCH ×2 (10:01→21:48)
[2021-05-05] MEDS: FERROUS SULFATE 325 MG TABLET PO SCH (10:01)
[2021-05-05] MEDS: predniSONE 20 MG TABLET PO SCH (10:01)
[2021-05-05] MEDS: CHLORHEXIDINE 0.12% ORAL RINSE 60 ML BOTTLE SWISH/SPIT SCH ×2 (10:02→21:49)
[2021-05-05] MEDS: PANTOPRAZOLE 40 MG TABLET PO SCH (10:02)
[2021-05-05] MEDS: INSULIN REGULAR 100 UNIT/ML SUBCUT SCH ×4 (10:03→23:00)
[2021-05-05] MEDS: APREMILAST 30 MG PO SCH (10:03)
[2021-05-05] MEDS: oxyCODONE/ACETAMINOPHEN 5-325 MG TABLET PO PRN (18:10)
[2021-05-05] MEDS: SIMVASTATIN 10 MG TABLET PO SCH (21:49)
[2021-05-05] MEDS: CALCIUM (CARBONATE)/VITAMIN D 600 MG-400 UNIT TABLET PO SCH (21:49)
[2021-05-06] MEDS: APREMILAST 30 MG PO SCH ×2 (02:42→10:17)
[2021-05-06 06:48] LABS: Hematocrit 30.3 VOL% (42.0-52.0); Hemoglobin 9.4 GM/DL (14.0-18.0); Immature Granulocytes % 2.7 %; Immature Granulocytes Absolute 0.15 #; Lymphocytes # 0.5 10*3/uL (1.4-4.0); Lymphocytes % 8.1 % (21.2-54.2); Mean Corpuscular Volume 87.3 FL (87-102); Monocytes % 7.9 % (1.7-12.7); Neutrophils % 81.3 % (38.7-73.9); Platelet Count 53 T/CUMM (130-400); Red Blood Count 3.47 MC/CUMM (3.8-5.5); Red Cell Distribution Width 16.6 % (9.3-17.3); White Blood Count 5.6 T/CUMM (4-12)
[2021-05-06 07:04] LABS: Hypochromasia 1+; Microcytosis 1+; Ovalocytes Slight; Platelet Estimate Decreased
[2021-05-06 07:10] LABS: Calcium 8.1 MG/DL (8.5-10.1); Osmolality,Calculated 302.8 MOS/KG (273-304); Potassium 3.9 MMOL/L (3.5-5.1)
[2021-05-06] MEDS ORDERED: FUROSEMIDE 20 MG TABLET PO SCH (08:00)
[2021-05-06] MEDS: MYCOPHENOLATE MOFETIL 250 MG CAPSULE PO SCH (10:02)
[2021-05-06] MEDS: DOCUSATE SODIUM 100 MG CAPSULE PO SCH (10:03)
[2021-05-06] MEDS: predniSONE 20 MG TABLET PO SCH (10:03)
[2021-05-06] MEDS: TACROLIMUS 0.5 MG CAPSULE PO SCH (10:03)
[2021-05-06] MEDS: PANTOPRAZOLE 40 MG TABLET PO SCH (10:04)
[2021-05-06] MEDS: NYSTATIN 500,000 UNIT/5 ML UDCUP SWISH/SWAL SCH (10:04)
[2021-05-06] MEDS: POTASSIUM CHLORIDE 20 MEQ TABLET PO SCH (10:04)
[2021-05-06] MEDS: AMIODARONE 200 MG TABLET PO SCH (10:04)
[2021-05-06] MEDS: FERROUS SULFATE 325 MG TABLET PO SCH (10:04)
[2021-05-06] MEDS: METOPROLOL SUCCINATE XL 50 MG TABLET PO SCH (10:04)
[2021-05-06] MEDS: ASCORBIC ACID 500 MG TABLET PO SCH (10:05)
[2021-05-06] MEDS: INSULIN REGULAR 100 UNIT/ML SUBCUT SCH (10:06)
[2021-05-06] MEDS: INSULIN GLARGINE 100 UNIT/ML SUBCUT SCH (10:06)
[2021-05-06] MEDS: CHLORHEXIDINE 0.12% ORAL RINSE 60 ML BOTTLE SWISH/SPIT SCH (10:11)
[2021-05-06] MEDS: oxyCODONE/ACETAMINOPHEN 5-325 MG TABLET PO PRN (10:16)
[2021-05-06 12:13] VITALS: BP 127/67
== END 2021-05-06 12:14 | disposition home health service (06) | DRG 216 ==
LOC: N.ED 18:52 → N.EDINP 23:14 → SUATTDRO 23:14 → N.CC 04-25 00:19 → N.TELEN 04-26 20:30 → N.CVR 04-29 09:29 → N.ICU 05-01 16:54 → N.TELES 05-03 15:29
PROVIDERS: ADMIT Family Medicine; ATTEND Internal Medicine
PROC: CABGAVR (ICD-10-PCS; 2021-04-29 06:45)

== ENCOUNTER 2021-05-10 18:29 | Inpatient (IN) ==
[2021-05-10 18:52] LABS: Basophils % 0.1 % (0.0-0.8); Hematocrit 37.6 VOL% (42.0-52.0); Hemoglobin 11.5 GM/DL (14.0-18.0); Immature Granulocytes % 2.1 %; Lymphocytes # 0.7 10*3/uL (1.4-4.0); Mean Corpuscular HGB Conc 30.6 GM/DL (32-36); Mean Corpuscular Volume 87.9 FL (87-102); Mean Platelet Volume 12.3 FL (9.6-12.0); Monocytes % 6.7 % (1.7-12.7); Neutrophils % 86.1 % (38.7-73.9); Platelet Count 79 T/CUMM (130-400); Red Blood Count 4.28 MC/CUMM (3.8-5.5); Red Cell Distribution Width 18.1 % (9.3-17.3); White Blood Count 14.3 T/CUMM (4-12)
[2021-05-10 19:16] LABS: Albumin 3.3 G/DL (3.4-5.0); Bilirubin,Total 1.4 MG/DL (0.20-1.00); Calcium 8.5 MG/DL (8.5-10.1); Osmolality,Calculated 290.2 MOS/KG (273-304); Potassium 4.5 MMOL/L (3.5-5.1); Total Protein 6.3 G/DL (6.4-8.2)
[2021-05-10] MEDS ORDERED: AMIODARONE INJ 150 MG in DEXTROSE 5% 100 ML IV ONE (20:59)
[2021-05-10] MEDS ORDERED: AMIODARONE INJ 450 MG in DEXTROSE 5% 241 ML IV SCH (21:00)
[2021-05-10] MEDS ORDERED: DEXTROSE 50% 25 GM/50 ML VIAL IV PRN (21:50)
[2021-05-10] MEDS ORDERED: GLUCAGON 1 MG VIAL IM PRN (21:50)
[2021-05-10 23:45] LABS: PT Patient Result 11.7 SECS (10.5-12.0); Partial Thromboplastin Time 26.2 SECS (23.8-32.1)
[2021-05-11] MEDS ORDERED: FUROSEMIDE 40 MG/4 ML VIAL IV ONE (00:12)
[2021-05-11 01:17] LABS: Basophils % 0.1 % (0.0-0.8); Eosinophils % 0.1 % (0.00-10.9); Hematocrit 32.1 VOL% (42.0-52.0); Hemoglobin 9.8 GM/DL (14.0-18.0); Immature Granulocytes % 2.3 %; Immature Granulocytes Absolute 0.19 #; Lymphocytes # 0.5 10*3/uL (1.4-4.0); Lymphocytes % 6.4 % (21.2-54.2); Mean Corpuscular HGB Conc 30.5 GM/DL (32-36); Mean Corpuscular Volume 87.7 FL (87-102); Mean Platelet Volume 9.9 FL (9.6-12.0); Monocytes % 7.1 % (1.7-12.7); Platelet Count 71 T/CUMM (130-400); Red Blood Count 3.66 MC/CUMM (3.8-5.5); Red Cell Distribution Width 17.9 % (9.3-17.3); White Blood Count 8.4 T/CUMM (4-12)
[2021-05-11 01:37] LABS: Calcium 8.3 MG/DL (8.5-10.1); Osmolality,Calculated 288.1 MOS/KG (273-304); Potassium 4.5 MMOL/L (3.5-5.1); Thyroid Stimulating Hormone 1.41 uIU/ml (0.358-3.74)
[2021-05-11] MEDS: MEROPENEM 500 MG in SODIUM CHLORIDE 0.9% 100 ML IV SCH ×3 (02:59→17:19)
[2021-05-11] MEDS ORDERED: METOPROLOL SUCCINATE XL 50 MG TABLET PO SCH (09:00)
[2021-05-11] MEDS: METOPROLOL SUCCINATE XL 50 MG TABLET PO SCH ×2 (09:16→21:16)
[2021-05-11] MEDS: MYCOPHENOLATE MOFETIL 250 MG CAPSULE PO SCH ×2 (09:16→21:20)
[2021-05-11] MEDS: AMIODARONE 200 MG TABLET PO SCH ×2 (09:16→21:20)
[2021-05-11] MEDS: TACROLIMUS 0.5 MG CAPSULE PO SCH (09:16)
[2021-05-11] MEDS: PANTOPRAZOLE 40 MG TABLET PO SCH (09:17)
[2021-05-11] MEDS: ASCORBIC ACID 500 MG TABLET PO SCH ×2 (09:17→21:20)
[2021-05-11] MEDS: predniSONE 5 MG TABLET PO SCH (09:17)
[2021-05-11] MEDS: FUROSEMIDE 40 MG/4 ML VIAL IV SCH ×2 (09:27→15:57)
[2021-05-11] MEDS ORDERED: ACETAMINOPHEN 500 MG TABLET PO PRN (09:38)
[2021-05-11] MEDS: CALCIUM (CARBONATE)/VITAMIN D 600 MG-400 UNIT TABLET PO SCH (21:16)
[2021-05-11] MEDS: SIMVASTATIN 10 MG TABLET PO SCH (21:20)
[2021-05-11] MEDS: allopurinoL 300 MG TABLET PO SCH (21:20)
[2021-05-12] MEDS: MEROPENEM 500 MG in SODIUM CHLORIDE 0.9% 100 ML IV SCH (02:45)
[2021-05-12 05:12] LABS: Eosinophils # 0.1 10*3/uL (0.0-0.87); Eosinophils % 1.4 % (0.00-10.9); Hemoglobin 10.4 GM/DL (14.0-18.0); Immature Granulocytes % 1.1 %; Immature Granulocytes Absolute 0.08 #; Lymphocytes # 0.6 10*3/uL (1.4-4.0); Lymphocytes % 7.9 % (21.2-54.2); Mean Corpuscular HGB Conc 30.6 GM/DL (32-36); Mean Corpuscular Volume 88.5 FL (87-102); Mean Platelet Volume 10.6 FL (9.6-12.0); Monocytes % 7.2 % (1.7-12.7); Neutrophils % 82.4 % (38.7-73.9); Platelet Count 64 T/CUMM (130-400); Red Blood Count 3.84 MC/CUMM (3.8-5.5); Red Cell Distribution Width 17.9 % (9.3-17.3)
[2021-05-12 05:36] LABS: Anisocytosis 1+; Macrocytosis Slight; Platelet Estimate Decreased
[2021-05-12 05:37] LABS: Ovalocytes Few
[2021-05-12 06:37] LABS: Calcium 8.4 MG/DL (8.5-10.1)
[2021-05-12] MEDS: TACROLIMUS 0.5 MG CAPSULE PO SCH (08:57)
[2021-05-12] MEDS: AMIODARONE 200 MG TABLET PO SCH ×2 (08:57→20:53)
[2021-05-12] MEDS: METOPROLOL SUCCINATE XL 50 MG TABLET PO SCH ×2 (08:57→20:53)
[2021-05-12] MEDS: predniSONE 5 MG TABLET PO SCH (08:57)
[2021-05-12] MEDS: ASCORBIC ACID 500 MG TABLET PO SCH ×2 (08:57→20:52)
[2021-05-12] MEDS: MYCOPHENOLATE MOFETIL 250 MG CAPSULE PO SCH ×2 (08:57→20:53)
[2021-05-12] MEDS: PANTOPRAZOLE 40 MG TABLET PO SCH (08:57)
[2021-05-12] MEDS: AMOXICILLIN/CLAV 875 MG TABLET PO SCH ×2 (09:37→20:53)
[2021-05-12] MEDS: FUROSEMIDE 40 MG/4 ML VIAL IV SCH ×2 (09:44→15:07)
[2021-05-12] MEDS: SIMVASTATIN 10 MG TABLET PO SCH (20:52)
[2021-05-12] MEDS: CALCIUM (CARBONATE)/VITAMIN D 600 MG-400 UNIT TABLET PO SCH (20:53)
[2021-05-12] MEDS: allopurinoL 300 MG TABLET PO SCH (20:53)
[2021-05-13 07:16] LABS: Basophils % 0.1 % (0.0-0.8); Eosinophils # 0.1 10*3/uL (0.0-0.87); Eosinophils % 0.7 % (0.00-10.9); Hematocrit 29.4 VOL% (42.0-52.0); Hemoglobin 8.9 GM/DL (14.0-18.0); Immature Granulocytes % 0.9 %; Immature Granulocytes Absolute 0.06 #; Lymphocytes # 0.6 10*3/uL (1.4-4.0); Lymphocytes % 8.1 % (21.2-54.2); Mean Corpuscular HGB Conc 30.3 GM/DL (32-36); Mean Corpuscular Volume 89.1 FL (87-102); Mean Platelet Volume 9.4 FL (9.6-12.0); Neutrophils % 82.2 % (38.7-73.9); Platelet Count 60 T/CUMM (130-400); Red Cell Distribution Width 17.7 % (9.3-17.3)
[2021-05-13 07:18] LABS: Osmolality,Calculated 288.2 MOS/KG (273-304); Potassium 4.2 MMOL/L (3.5-5.1)
[2021-05-13 07:53] LABS: Anisocytosis 2+; Platelet Estimate Decreased
[2021-05-13 07:55] LABS: Hypochromasia Slight; Macrocytosis 1+; Polychromasia Slight
[2021-05-13] MEDS ORDERED: ASPIRIN EC 81 MG TABLET PO SCH (09:13)
[2021-05-13] MEDS: MYCOPHENOLATE MOFETIL 250 MG CAPSULE PO SCH (10:17)
[2021-05-13] MEDS: AMOXICILLIN/CLAV 875 MG TABLET PO SCH (10:18)
[2021-05-13] MEDS: FUROSEMIDE 40 MG/4 ML VIAL IV SCH (10:18)
[2021-05-13] MEDS: METOPROLOL SUCCINATE XL 50 MG TABLET PO SCH (10:18)
[2021-05-13] MEDS: ASCORBIC ACID 500 MG TABLET PO SCH (10:18)
[2021-05-13] MEDS: PANTOPRAZOLE 40 MG TABLET PO SCH (10:18)
[2021-05-13] MEDS: predniSONE 5 MG TABLET PO SCH (10:18)
[2021-05-13] MEDS: TACROLIMUS 0.5 MG CAPSULE PO SCH (10:18)
[2021-05-13] MEDS: AMIODARONE 200 MG TABLET PO SCH (10:19)
[2021-05-13 12:23] VITALS: BP 126/63
== END 2021-05-13 15:30 | disposition home health service (06) | DRG 291 ==
LOC: N.ED 18:29 → N.EDINP 21:50 → N.TELEN 23:05
PROVIDERS: ADMIT Internal Medicine; ATTEND Internal Medicine

== ENCOUNTER 2021-09-23 13:47 | Inpatient (IN) ==
[2021-09-23 14:12] LABS: Basophils % 0.4 % (0.0-0.8); Eosinophils # 0.1 10*3/uL (0.0-0.87); Eosinophils % 2.1 % (0.00-10.9); Hematocrit 32.2 VOL% (42.0-52.0); Hemoglobin 9.4 GM/DL (14.0-18.0); Immature Granulocytes % 0.8 %; Immature Granulocytes Absolute 0.04 #; Lymphocytes # 0.7 10*3/uL (1.4-4.0); Lymphocytes % 14.4 % (21.2-54.2); Mean Corpuscular HGB Conc 29.2 GM/DL (32-36); Mean Corpuscular Volume 75.6 FL (87-102); Mean Platelet Volume 9.8 FL (9.6-12.0); Monocytes % 8.8 % (1.7-12.7); Neutrophils % 73.5 % (38.7-73.9); Platelet Count 214 T/CUMM (130-400); Red Blood Count 4.26 MC/CUMM (3.8-5.5); Red Cell Distribution Width 16.5 % (9.3-17.3); White Blood Count 5.1 T/CUMM (4-12)
[2021-09-23 14:40] LABS: Albumin 2.3 G/DL (3.4-5.0); Bilirubin,Total 0.7 MG/DL (0.20-1.00); Calcium 8.6 MG/DL (8.5-10.1); Osmolality,Calculated 290.4 MOS/KG (273-304); Potassium 5.3 MMOL/L (3.5-5.1); Total Protein 6.5 G/DL (6.4-8.2)
[2021-09-23] MEDS ORDERED: ALBUTEROL/IPRATROPIUM 3 ML NEB RESP TX STA (16:22)
[2021-09-23] MEDS ORDERED: SODIUM CHLORIDE 0.9% 500 ML IV STA (16:33)
[2021-09-23] MEDS ORDERED: ALBUTEROL/IPRATROPIUM 3 ML NEB RESP TX PRN (17:31)
[2021-09-23] MEDS ORDERED: ONDANSETRON 4 MG/2 ML VIAL IV PRN (17:31)
[2021-09-23] MEDS ORDERED: GLUCAGON 1 MG VIAL IM PRN (17:31)
[2021-09-23] MEDS ORDERED: ACETAMINOPHEN 325 MG TABLET PO PRN (17:31)
[2021-09-23 18:02] LABS: Risk Ratio 3.6; Thyroid Stimulating Hormone 1.53 uIU/ml (0.358-3.74); VLDL Cholesterol 19.8 MG/DL
[2021-09-23] MEDS ORDERED: DEXTROSE 10% 250 ML BAG IV PRN (18:02)
[2021-09-23] MEDS: SIMVASTATIN 10 MG TABLET PO SCH (22:35)
[2021-09-23] MEDS: CALCIUM (CARBONATE)/VITAMIN D 600 MG-400 UNIT TABLET PO SCH (22:35)
[2021-09-23] MEDS: allopurinoL 300 MG TABLET PO SCH (22:35)
[2021-09-23] MEDS: APREMILAST 30 MG PO SCH (22:35)
[2021-09-23] MEDS: INSULIN LISPRO 100 UNIT/ML SUBCUT SCH (22:38)
[2021-09-23] MEDS: HEPARIN 5,000 UNIT/1 ML VIAL SUBCUT SCH (22:40)
[2021-09-24 01:50] LABS: Basophils % 0.3 % (0.0-0.8); Eosinophils # 0.1 10*3/uL (0.0-0.87); Eosinophils % 2.5 % (0.00-10.9); Hematocrit 26.7 VOL% (42.0-52.0); Immature Granulocytes % 1.2 %; Immature Granulocytes Absolute 0.04 #; Lymphocytes # 0.4 10*3/uL (1.4-4.0); Lymphocytes % 11.5 % (21.2-54.2); Mean Corpuscular HGB Conc 29.6 GM/DL (32-36); Mean Corpuscular Volume 73.8 FL (87-102); Mean Platelet Volume 9.4 FL (9.6-12.0); Monocytes % 7.7 % (1.7-12.7); Neutrophils % 76.8 % (38.7-73.9); Platelet Count 177 T/CUMM (130-400); Red Blood Count 3.62 MC/CUMM (3.8-5.5); Red Cell Distribution Width 16.3 % (9.3-17.3); White Blood Count 3.2 T/CUMM (4-12)
[2021-09-24 01:51] LABS: Hemoglobin 7.9 GM/DL (14.0-18.0)
[2021-09-24 02:03] LABS: Calcium 8.3 MG/DL (8.5-10.1); Osmolality,Calculated 284.4 MOS/KG (273-304); Potassium 4.5 MMOL/L (3.5-5.1)
[2021-09-24] MEDS ORDERED: SODIUM CHLORIDE 0.9% 1,000 ML IV SCH (07:30)
[2021-09-24] MEDS: INSULIN LISPRO 100 UNIT/ML SUBCUT SCH ×4 (07:59→20:25)
[2021-09-24] MEDS ORDERED: MAGNESIUM SULF RIDER 2 GM/50 ML PREMIX IV ONE (08:21)
[2021-09-24] MEDS ORDERED: PANTOPRAZOLE 40 MG TABLET PO SCH (09:00)
[2021-09-24] MEDS ORDERED: FUROSEMIDE 20 MG TABLET PO SCH (09:00)
[2021-09-24] MEDS ORDERED: ASPIRIN EC 81 MG TABLET PO SCH (09:00)
[2021-09-24 09:35] LABS: Basophils % 0.3 % (0.0-0.8); Eosinophils # 0.1 10*3/uL (0.0-0.87); Eosinophils % 2.3 % (0.00-10.9); Hematocrit 25.2 VOL% (42.0-52.0); Hemoglobin 7.4 GM/DL (14.0-18.0); Immature Granulocytes % 0.6 %; Immature Granulocytes Absolute 0.02 #; Lymphocytes # 0.8 10*3/uL (1.4-4.0); Lymphocytes % 21.5 % (21.2-54.2); Mean Corpuscular HGB Conc 29.4 GM/DL (32-36); Mean Corpuscular Volume 75.4 FL (87-102); Mean Platelet Volume 8.6 FL (9.6-12.0); Neutrophils % 67.3 % (38.7-73.9); Platelet Count 149 T/CUMM (130-400); Red Blood Count 3.34 MC/CUMM (3.8-5.5); Red Cell Distribution Width 16.4 % (9.3-17.3); White Blood Count 3.5 T/CUMM (4-12)
[2021-09-24] MEDS: MULTIVITAMIN (CENTRUM) TABLET PO SCH (09:55)
[2021-09-24] MEDS: TACROLIMUS 0.5 MG CAPSULE PO SCH (09:55)
[2021-09-24] MEDS: HEPARIN 5,000 UNIT/1 ML VIAL SUBCUT SCH (09:56)
[2021-09-24] MEDS: APREMILAST 30 MG PO SCH ×2 (10:04→20:37)
[2021-09-24 10:16] LABS: % Iron Saturation 9.5 % (18-50); Ferritin 201.1 ng/mL (26-388)
[2021-09-24 10:19] LABS: Folate > 24.00 NG/ML (5.38-24.0); Vitamin B12 1172 PG/ML (211-911)
[2021-09-24 10:40] LABS: Basophils % 0.3 % (0.0-0.8); Eosinophils # 0.1 10*3/uL (0.0-0.87); Eosinophils % 2.1 % (0.00-10.9); Hematocrit 24.2 VOL% (42.0-52.0); Immature Granulocytes % 0.7 %; Immature Granulocytes Absolute 0.02 #; Lymphocytes # 0.5 10*3/uL (1.4-4.0); Lymphocytes % 17.1 % (21.2-54.2); Mean Corpuscular HGB Conc 28.9 GM/DL (32-36); Mean Corpuscular Volume 76.8 FL (87-102); Mean Platelet Volume 11.7 FL (9.6-12.0); Monocytes % 7.7 % (1.7-12.7); Neutrophils % 72.1 % (38.7-73.9); Platelet Count 163 T/CUMM (130-400); Red Blood Count 3.15 MC/CUMM (3.8-5.5); Red Cell Distribution Width 16.5 % (9.3-17.3); White Blood Count 2.9 T/CUMM (4-12)
[2021-09-24 11:17] LABS: Anisocytosis 1+; Band Neutrophils 6 % (0-10); Eosinophils 4 % (0-10); Lymphocytes 16 % (20-55); Ovalocytes Few; Platelet Estimate Normal; Poikilocytosis Slight; Segmented Neutrophils 70 % (50-85); Tear Drop Cells Few; Total Cells Counted 100
[2021-09-24 11:46] LABS: Sedimentation Rate-Westergren 122 MM/HR (0-20)
[2021-09-24] MEDS: SODIUM CHLORIDE 0.9% 1,000 ML IV SCH ×2 (13:32→20:37)
[2021-09-24] MEDS ORDERED: SODIUM CHLORIDE 0.9% 1,000 ML IV PRN (13:46)
[2021-09-24 14:31] LABS: Hematocrit 24.9 VOL% (42.0-52.0); Hemoglobin 7.4 GM/DL (14.0-18.0)
[2021-09-24 14:43] LABS: INR 1.1; PT Patient Result 12.2 SECS (10.5-12.0)
[2021-09-24] MEDS: CALCIUM (CARBONATE)/VITAMIN D 600 MG-400 UNIT TABLET PO SCH (20:23)
[2021-09-24] MEDS: allopurinoL 300 MG TABLET PO SCH (20:24)
[2021-09-24] MEDS: SIMVASTATIN 10 MG TABLET PO SCH (20:24)
[2021-09-24] MEDS: PANTOPRAZOLE 40 MG VIAL IV SCH (20:27)
[2021-09-25 05:03] LABS: Basophils % 0.3 % (0.0-0.8); Eosinophils % 1.3 % (0.00-10.9); Hematocrit 29.6 VOL% (42.0-52.0); Hemoglobin 8.9 GM/DL (14.0-18.0); Immature Granulocytes Absolute 0.03 #; Lymphocytes # 0.5 10*3/uL (1.4-4.0); Lymphocytes % 16.3 % (21.2-54.2); Mean Corpuscular HGB Conc 30.1 GM/DL (32-36); Mean Corpuscular Volume 76.3 FL (87-102); Mean Platelet Volume 10.7 FL (9.6-12.0); Monocytes % 6.1 % (1.7-12.7); Platelet Count 155 T/CUMM (130-400); Red Blood Count 3.88 MC/CUMM (3.8-5.5); Red Cell Distribution Width 16.1 % (9.3-17.3); White Blood Count 3.1 T/CUMM (4-12)
[2021-09-25 05:19] LABS: Calcium 8.5 MG/DL (8.5-10.1); Osmolality,Calculated 283.1 MOS/KG (273-304); Potassium 4.8 MMOL/L (3.5-5.1)
[2021-09-25] MEDS: SODIUM CHLORIDE 0.9% 1,000 ML IV SCH (06:03)
[2021-09-25 07:03] LABS: Total Protein (Chem) 5.9 G/DL (6.4-8.3)
[2021-09-25] MEDS ORDERED: METOPROLOL TARTRATE 25 MG TABLET PO SCH (09:00)
[2021-09-25] MEDS: INSULIN LISPRO 100 UNIT/ML SUBCUT SCH ×2 (09:04→13:51)
[2021-09-25 09:28] LABS: Hemoglobin A1 (Alkaline) 97.3 % (96.5-98.5); Hemoglobin A2 (Alkaline) 2.7 % (1.5-3.5)
[2021-09-25] MEDS: TACROLIMUS 0.5 MG CAPSULE PO SCH (10:21)
[2021-09-25] MEDS: MULTIVITAMIN (CENTRUM) TABLET PO SCH (10:21)
[2021-09-25] MEDS: APREMILAST 30 MG PO SCH (10:22)
[2021-09-25] MEDS: PANTOPRAZOLE 40 MG VIAL IV SCH (10:25)
[2021-09-25 10:28] LABS: Albumin (SPE) Rel % 50.8 %; Alpha 1 (SPE) 0.4 G/DL (0.1-0.4); Alpha 1 (SPE) Rel % 7.2 %; Alpha 2 (SPE) Rel % 17.2 %; Beta (SPE) 0.6 G/DL (0.5-1.1); Beta (SPE) Rel % 10.6 %; Gamma (SPE) 0.8 G/DL (0.7-1.7); Gamma (SPE) Rel % 14.2 %
[2021-09-25 13:50] VITALS: BP 139/72
== END 2021-09-25 14:22 | disposition home or self-care (01) | DRG 812 ==
LOC: N.ED 13:47 → N.EDINP 13:47 → N.TELES 23:40
PROVIDERS: ADMIT Internal Medicine; ATTEND Internal Medicine